=== PATIENT | female | born 2000 | race African-American/Black ===

== ENCOUNTER 2020-04-24 16:00 | Outpatient (REF) | payer OTHER, SELFPAY ==
[2020-04-26 10:01] LABS: CT PCR NOT DETECTED (Not Detect.); NG PCR NOT DETECTED (Not Detect.)
[2020-04-26 12:32] LABS: BV Int Neg Control Negative (Negative); BV Int Pos Control Positive (Positive)
== END 2020-04-24 16:01 | disposition home or self-care (01) ==
LOC: HO.LNP 16:00
PROVIDERS: Visit Provider Nurse Practitioner Family
DX: R30.0 Dysuria (principal)
CPT/HCPCS: 87480; 87491; 87510; 87591; 87660

== ENCOUNTER 2020-06-17 10:26 | Emergency (ER) | payer OTHER, SELFPAY ==
[2020-06-17 10:53] VITALS: BP 121/92; PULSE 87; RESP 18; TEMP 37.1; O2SAT 99; BMI 38.9
--- NOTE | 2020-06-17 11:38 | US_ITS ---
EXAMINATION: US ABDOMEN LIMITED CLINICAL INFORMATION: Right lower quadrant pain. Rule out biliary disease. COMPARISON: Ultrasound abdomen limited 02/09/2020 TECHNIQUE: Real-time imaging of the right upper quadrant abdominal viscera. FINDINGS: PANCREAS: The body and head of pancreas is homogeneous in echotexture. The tail is obscured by overlying gas. LIVER: Slightly irregular shaped hyperechoic focal area in the right lower lobe measuring 2.0 x 2.0 x 1.7 cm. It is new since the last exam 02/09/2020. The liver is normal in size. The liver contour is normal. Parenchymal echogenicity is normal. No focal hepatic lesion. There is no intrahepatic biliary duct dilatation seen. GALLBLADDER: There are multiple echogenic gallstones without wall thickening. No pericholecystic fluid collection seen. No pericholecystic fluid collection seen. COMMON BILE DUCT: Normal in caliber measuring 0.3 cm in diameter. RIGHT KIDNEY: Normal. No hydronephrosis. No renal calculi or focal parenchymal lesions. The kidney measures 12.2 cm in maximum dimension. FREE FLUID: None. US/US abdomen limited IMPRESSION: New hyperechoic area in the right hepatic lobe question hemangioma. It is not seen on today's CT abdomen exam or previous ultrasound study 02/09/2020. Cholelithiasis without wall thickening. It is unchanged to previous study 02/09/2020. It is not visualized on today's CT abdomen exam.
--- NOTE | 2020-06-17 11:40 | CT_ITS ---
EXAMINATION: CT ABDOMEN AND PELVIS WITH CONTRAST CLINICAL INFORMATION: Right-sided pain. Right upper quadrant and right lower quadrant pain. COMPARISON: Ultrasound abdomen limited 02/09/2020 TECHNIQUE: Multidetector volumetric images were obtained from the superior aspect of the liver through the pubic symphysis following administration 85 mL of Omnipaque 350 intravenous contrast. Sagittal and coronal reformatted images were obtained on the technologist's workstation. Oral contrast: No This CT examination was performed using dose optimization techniques as appropriate, variously including the following: *Automated exposure control *Adjustment of mA and/or kV according to patient size (this includes techniques or standardized protocols for targeted exams where dose is matched to indication/reason for exam; i.e. extremities or head) *Use of iterative reconstruction technique DLP: 703 mGy-cm FINDINGS: LUNG BASES: The visualized lung bases are unremarkable. LIVER, GALLBLADDER, AND BILIARY TREE: The liver is normal in size, shape, and attenuation. No focal hepatic lesion or biliary ductal dilatation is present. The gallbladder shows no dilatation or wall thickening. No pericholecystic inflammatory changes. The gallstone noted on recent ultrasound is not demonstrated on CT. The common duct is unremarkable. No ductal dilatation or visible choledocholithiasis. PANCREAS: Unremarkable. SPLEEN: Unremarkable. ADRENAL GLANDS: Unremarkable. KIDNEYS AND URETERS: The kidneys are normal in size, shape, and attenuation. No hydronephrosis, hydroureter, or calculi seen. No perinephric stranding. BLADDER: Unremarkable. GASTROINTESTINAL TRACT: There is no bowel obstruction or inflammatory changes in the bowel or mesentery. The appendix is normal. There is a borderline sliding hiatal hernia. No ascites or fluid collection. ABDOMINAL WALL: No significant hernia is appreciated. LYMPH NODES: Normal. VASCULAR: Unremarkable. PELVIC VISCERA: The uterus is retroflexed and retroverted. No visible adnexal mass. No pelvic ascites. OSSEOUS STRUCTURES: Unremarkable. CT/CT abdomen pelvis w con IMPRESSION: 1. No biliary ductal dilatation or pericholecystic inflammatory changes. 2. Normal appendix. No bowel obstruction or inflammatory changes. 3. No hydronephrosis, urinary tract calculi, or perinephric stranding.
--- NOTE | 2020-06-17 11:42 | ED.ABDPAIN ---
HPI - Abdominal Pain General Chief Complaint: Abdominal Pain Stated Complaint: back and stomach pain Time Seen by Provider: 06/17/20 11:23 History of Present Illness HPI narrative: 20-year-old female who presents to the emergency department for evaluation of abdominal pain and persistent nausea. The patient was seen at our primary care office today refer to emergency department for further evaluation. The patient states that she has been having intermittent abdominal pain and nausea since January of 2020. She was seen here in the emergency department and diagnosed with gastritis and gallstones. She states that she followed up with the surgeon who convinced her to not have her gallbladder removed. She states that she has been having daily abdominal pain and nausea for 1 month. She states that the symptoms have gotten worse over the last week. She points to her mid epigastric area when asked to localize her pain. She states the pain is constant but waxes and wanes in intensity. The pain is exacerbated by eating. She states the pain is severe and is 10 out 10. She has constant nausea but no vomiting. She states she occasionally takes Tums with some relief of her discomfort. She denied fever, chills, chest pain, shortness of breaths, frequency, urgency or dysuria. She states that her bowel movements vary from being constipated having diarrhea. She has not noticed any blood in her bowel movements. The patient's past surgical history is consistent with a in 2019 otherwise she has had no other abdominal surgeries. Related Data Previous Rx's Medication Instructions Recorded fluconazole 150 mg tablet 150 mg PO Q3D #2 tab 04/24/20 ondansetron 4 mg PO Q8H PRN 5 Days #20 tab 06/17/20 Allergies Allergy/AdvReac Type Severity Reaction Status Date / Time grapefruit [GRAPEFRUIT] Allergy Severe ANAPHYLAXIS Verified 06/17/20 10:58 Sulfa (Sulfonamide Allergy Severe ANAPHYLAXIS, Verified 06/17/20 10:58 Antibiotics) sweling of [SULFA (SULFONAMIDE the face ANTIBIOTICS)] and throat, throat & facial swelling nitrofurantoin Allergy Unknown rash on Verified 06/17/20 10:58 face, facial rash SEASONAL ALLERGIES Allergy Intermediate UNKNOWN Uncoded 06/17/20 09:21 Avacados Allergy Unknown rash Uncoded 06/17/20 09:21 avocados Allergy Unknown rash Uncoded 06/17/20 09:21 cranberry juice Allergy Unknown rash Uncoded 06/17/20 09:21 grapefruit Allergy Unknown rash Uncoded 06/17/20 09:21 Review of Systems Review of Systems Yes all other systems are reviewed and are negative Constitutional: Reports as per HPI Eyes: Reports as per HPI Reports as per HPI Cardiovascular: Reports as per HPI Respiratory: Reports as per HPI Gastrointestinal: Reports as per HPI Genitourinary: Reports as per HPI Musculoskeletal: Reports as per HPI Skin/Breast: Reports as per HPI Reports as per HPI and Reports Abnormal speech present Psychiatric: Reports as per HPI Allergic/Immunologic: Reports as per HPI Physical Exam Vital Signs: Vital Signs: Last Vital Signs Temp 98.7 F 06/17/20 14:00 Pulse 98 06/17/20 14:00 Resp 16 06/17/20 14:00 BP 101/61 06/17/20 14:00 Pulse Ox 99 06/17/20 10:53 Body Mass Index 38.9 Const: General: cooperative, no acute distress, alert and awake Orientation/consciousness: oriented to person and oriented to place Limitations: no limitations HENMT: Head: Yes normal to inspection, Yes normocephalic and Yes atraumatic Ears: external ears normal Eyes: General: appearance normal, both eyes and all related structures Periorbital: periorbital findings normal Eyelids: Yes eyelids normal Conjunctivae: conjunctivae normal Sclerae: sclerae normal Corneas: corneas normal Pupils: Equal, round and reactive pupils present Direct Ophthalmoscopy: normal light reflex Neck: Neck: Yes normal visual inspection and Yes supple Lymphatic: no lymphadenopathy noted Chest: Chest palpation & inspection: normal inspection of the chest and normal palpation of entire chest wall Resp: Effort & Inspection: normal respiratory effort, abnormal respiratory pattern, no audible wheezes and no respiratory distress Auscultation: clear to auscultation bilaterally, no crackles, no rales, no rhonchi and no wheezes Cardio: Rate: regular rate Rhythm: regular rhythm Heart sounds: S1 normal heart sound present, S2 normal heart sound present and Murmur heart sound present GI: Inspection: No distended Palpation (GI): Soft to palpation, Tenderness to palpation present (GI) in the RLQ (Moderate to severe) and in the RUQ (Moderate), no guarding and No hepatosplenomegaly present Auscultation: normal bowel sounds : General: Yes no CVA tenderness Back/Spine/Pelvis: Back: no CVA tenderness Skin: General skin exam: no rashes or lesions noted Lesions: no lesions Rashes: no rashes Wounds: no wounds Neuro: General: oriented to person and oriented to place Cranial nerves: Yes CN's II-XII intact bilaterally and Yes Equal, round and reactive pupils present Cognition (Neuro): normal cognition Speech: Abnormal speech present Motor exam (neuro): 5/5 motor strength present throughout Extrem: General: Yes normal to inspection, Yes full ROM, Yes no pedal edema and Yes no calf tenderness Psych: Appearance: grossly normal Mental Status: mental status grossly normal Speech and movement: Clear speech present Affect: normal affect Thought process: Normal thought process present Course Course Course Narrative: MDM: 20-year-old female who presents emergency department for evaluation of abdominal pain since January 2020 which has gotten worse over the past month and significantly worse over the past week. The patient does have diagnosed gallstones from a previous ER visit and follow-up with surgeon who recommended against cholecystectomy time. The patient is experiencing severe right upper quadrant pain which radiates to her back associated with nausea. Physical examination revealed both right upper and right lower quadrant tenderness. Differential includes but is not limited to cholecystitis, appendicitis, gastritis. I ordered an abdominal pain workup to include CBC, CMP, lipase, right upper quadrant ultrasound, CT scan of the abdomen and pelvis with IV contrast. The patient will be treated with Toradol 30 mg IV and Zofran 4 mg IV. She was also ordered to get normal saline x1 L. 1428: The patient's laboratory evaluation was normal with normal LFTs and elevated lipase. The patient's urinalysis and urine tests were negative as well. CT scan of the abdomen and pelvis with IV contrast revealed a normal gallbladder. Ultrasound of the patient's right upper quadrant did reveal small gallstones and possible hemangioma but otherwise no other significant abnormalities to explain the patient's pain. I did discuss these findings with the patient. I did tell her it is possible that she could have a non contracted gallbladder however I suspect that her pain is more likely related to gastritis and esophagitis. The patient will be referred to the on-call automatic brine mixer operator for follow-up. She was started on Prilosec 20 mg once a day for 1 month. She was also started on Zofran 4 mg ODT q.8 hours as needed for nausea and vomiting. She was advised to take Tylenol for pain and to avoid ibuprofen. She was given printed instructions and is reviewed with her prior to discharge. MDM - Abdominal Pain Lab Data Result diagrams: 06/17/20 12:06 06/17/20 12:06 Labs: Lab Results 06/17/20 06/17/20 06/17/20 Range/Units 12:06 12:06 12:06 WBC 10.0 (4.8-10.8) X10*3/uL RBC 4.53 (4.20-5.50) X10*6/uL Hgb 12.7 (12.0-16.0) g/dl Hct 39.6 (37-47) % MCV 87.4 (80-98) fL MCH 28.0 (27.0-33.0) pg MCHC 32.1 (31.0-35.0) g/dl RDW 13.6 (11.0-16.0) % Plt Count 321 (160-400) X10*3/uL MPV 9.9 (9.4-12.3) fL Immature Gran % (Auto) 0.3 (0.0-0.4) % Neut % (Auto) 75.9 H (45-73) % Lymph % (Auto) 18.2 L (20-40) % [place] % (Auto) 5.1 (2-11) % Eos % (Auto) 0.2 (0-4) % Baso % (Auto) 0.3 (0-2) % Lymph # (Auto) 1.8 (1.2-4.9) X10*3/uL [place] # (Auto) 0.5 (0.1-1.2) X10*3/uL Eos # (Auto) 0.0 (0.0-0.4) X10*3/uL Baso # (Auto) 0.0 (0.0-0.2) X10*3/uL Abs Immat Gran (auto) 0.03 (0.00-0.03) X10*3/uL Absolute Neuts (auto) 7.6 (2.0-8.3) X10*3/uL Absolute Nucleated RBC 0.000 (0.0-0.012) X10*3/uL Nucleated RBC % (auto) 0.0 (0.0-0.2) /100WBC Sodium 137 (135-145) mmol/L Potassium 4.3 (3.3-5.1) mmol/l Chloride 102 (96-108) mmol/L Carbon Dioxide 26 (22-29) mmol/L Anion Gap 13 (12-20) BUN 13 (9-16) mg/dL Creatinine 0.75 (0.5-1.4) mg/dL Estim Creat Clear Calc 123.7 Estimated GFR > 60 Random Glucose 80 (60-115) mg/dL Calcium 9.6 (8.4-10.2) mg/dL Total Bilirubin 0.6 (0.0-1.0) mg/dL Direct Bilirubin 0.3 (0.0-0.5) mg/dL AST 19 (5-31) U/L ALT 20 (0-31) U/L Alkaline Phosphatase 68 (39-117) U/L Total Protein 7.4 (6.5-8.0) g/dL Albumin 4.5 (3.5-5.0) g/dL Lipase 19 (8-78) U/L Urine Color YELLOW Urine Appearance CLOUDY Urine pH 6.0 (5.0-8.0) Ur Specific [place] >= 1.030 H (1.005-1.025) Urine Protein TRACE (NEG-TRACE) MG/DL Urine Glucose (UA) NEG (NEG) MG/DL Urine Ketones >=80 (NEG) MG/DL Urine Blood NEG (NEG) Urine Nitrite NEG (NEG) Ur Leukocyte Esterase NEG (NEG) Urine Test NEGATIVE (NEGATIVE) Discharge Plan Discharge Clinical Impression: Nausea Abdominal pain Qualifiers: Abdominal location: epigastric Qualified Code(s): R10.13 - Epigastric pain Patient Disposition: Home, Self-Care Instructions: Gastritis (ED), Esophagitis (ED) Additional Instructions: Your blood work today was normal which is reassuring. The CT scan of your abdomen and pelvis with IV contrast revealed a normal gallbladder and no other abnormalities to explain her pain. The ultrasound of the gallbladder did reveal gallstones and a small hematoma. There was no inflammation of the gallbladder noted. It is possible that your gallbladder may not be theodora this could cause your pain however I believe that your pain is more likely caused by inflammation of her stomach (gastritis) or inflammation of your food tube (esophagitis). Take Prilosec (omeprazole) 20 mg tablets once a day for 1 month. Take Zofran (ondansetron) 4 mg oral dissolvable tablets, 1 tablet dissolved in mouth every 8 hours as needed for nausea and vomiting. Please call the automatic brine mixer operator on-call to make a follow-up appointment within 1-2 weeks for re-evaluation and further workup of your abdominal pain. Please return to the emergency department if her symptoms get worse if you develop any new symptoms that are concerning to you. Prescriptions: New ondansetron 4 mg tablet,disintegrating 4 mg PO Q8H PRN (Reason: nausea and vomiting) 5 Days Qty: 20 RF: 0 No Action fluconazole [Diflucan] 150 mg tablet 150 mg PO Q3D Qty: 2 RF: 0 Referrals: Martha King MD [Physician] - 2 weeks [facility] Past Medical History [facility] Narrative: The patient denies tobacco use. She states she drinks alcohol socially. Denies drug use. Medical History Asthma Gallstones Gastritis Social History Social History Smoking Status: Never smoker Use of substances other than those prescribed or required for medical reasons: No Advance Directives: No Advance Directives Information Provided: Yes
[2020-06-17] MEDS: 0.9 % Sodium Chloride 1,000 ML 999 ML IVCONT (12:11)
[2020-06-17 12:12] LABS: Basophils Percent Auto 0.3 % (0-2); Eosinophils Percent Auto 0.2 % (0-4); Hematocrit 39.6 % (37-47); Hemoglobin 12.7 g/dl (12.0-16.0); Imm Gran Abs Auto 0.03 X10*3/uL (0.00-0.03); Imm Gran Pct Auto 0.3 % (0.0-0.4); Lymphocytes Absolute Auto 1.8 X10*3/uL (1.2-4.9); Lymphocytes Percent Auto 18.2 % (20-40); MANUAL DIFF FLAG NO; Mean Corpuscular HGB Conc 32.1 g/dl (31.0-35.0); Mean Corpuscular Volume 87.4 fL (80-98); Mean Platelet Volume 9.9 fL (9.4-12.3); Monocytes Absolute Auto 0.5 X10*3/uL (0.1-1.2); Monocytes Percent Auto 5.1 % (2-11); Neutrophils Absolute Auto 7.6 X10*3/uL (2.0-8.3); Neutrophils Percent Auto 75.9 % (45-73); Platelet Count 321 X10*3/uL (160-400); Red Blood Count 4.53 X10*6/uL (4.20-5.50); Red Cell Distribution Width 13.6 % (11.0-16.0)
[2020-06-17] MEDS: Ketorolac Tromethamine 30 MG/ML VIAL IVPUSH (12:12)
[2020-06-17] MEDS: ondansetron HCL 4 MG/2 ML VIAL IVPUSH (12:12)
[2020-06-17 12:14] LABS: Glucose Urine UA NEG (NEG); Leukocyte Esterase Urine NEG (NEG); Nitrite Urine NEG (NEG); Specific Gravity - Urine >= 1.030 (1.005-1.025); Urine Blood NEG (NEG); Urine Ketones >=80 MG/DL (NEG); Urine Protein TRACE MG/DL (NEG-TRACE)
[2020-06-17 12:15] LABS: Appearance Urine CLOUDY; Color Urine YELLOW
[2020-06-17 12:16] LABS: UPreg QC Valid YES; Urine Pregnancy NEGATIVE (NEGATIVE)
[2020-06-17 12:47] LABS: Alanine Aminotransferase 20 U/L (0-31); Albumin Level 4.5 g/dL (3.5-5.0); Alkaline Phosphatase 68 U/L (39-117); Anion Gap 13 (12-20); Aspartate Amino Transferase 19 U/L (5-31); Bilirubin Direct 0.3 mg/dL (0.0-0.5); Bilirubin Total 0.6 mg/dL (0.0-1.0); Blood Urea Nitrogen 13 mg/dL (9-16); Calcium 9.6 mg/dL (8.4-10.2); Carbon Dioxide 26 mmol/L (22-29); Chloride 102 mmol/L (96-108); Creatinine Clr Calc Pharmacy 123.7; Estimated Glomerular Filt Rate > 60; Glucose Random 80 mg/dL (60-115); Lipase 19 U/L (8-78); Potassium 4.3 mmol/l (3.3-5.1); Sodium 137 mmol/L (135-145); Total Protein 7.4 g/dL (6.5-8.0)
[2020-06-17] MEDS: iohexoL 350 MG/ML 100 ML INFUS..BTL 85 ML IV (13:34)
[2020-06-17 14:00] VITALS: BP 101/61; PULSE 98; RESP 16; TEMP 37.1
== END 2020-06-17 14:52 | disposition home or self-care (01) ==
PROVIDERS: Emergency Provider Emergency Medicine Emergency Medical Services; PCP Internal Medicine
DX: R10.13 Epigastric pain (principal); R11.0 Nausea; Z79.899 Other long term (current) drug therapy
CPT/HCPCS: 36415; 74177; 76705; 80048; 80076; 81003; 81025; 83690; 85025; 96361; 96374; 96375; 99284; J1885; J2405; Q9967

== ENCOUNTER 2020-06-27 08:35 | Emergency (ER) | payer OTHER, SELFPAY ==
[2020-06-27 09:02] VITALS: BP 111/67; PULSE 81; RESP 20; TEMP 36.8; O2SAT 99; BMI 37.8
--- NOTE | 2020-06-27 09:20 | US_ITS ---
EXAMINATION: US ABDOMEN LIMITED CLINICAL INFORMATION: Right upper quadrant pain. COMPARISON: Previous ultrasound of the abdomen and CT of the abdomen and pelvis 06/17/2020 TECHNIQUE: Real-time imaging of the right upper quadrant abdominal viscera. FINDINGS: PANCREAS: Normal. LIVER: Normal. The liver is normal in size. The liver contour is normal. Parenchymal echogenicity is normal. No focal hepatic lesion. There is no intrahepatic biliary duct dilatation seen. GALLBLADDER: There is a gallstone in the neck of the gallbladder. The gallbladder is upper normal in size measuring 9.5 x 3.5 x 4 cm. The gallbladder wall does not appear thickened. There is no pericholecystic fluid. COMMON BILE DUCT: Normal in caliber measuring 0.4 cm in diameter. RIGHT KIDNEY: Normal. No hydronephrosis. No renal calculi or focal parenchymal lesions. The kidney measures 11.4 cm in maximum dimension. FREE FLUID: None. US/US abdomen limited IMPRESSION: Gallstone in the neck of the gallbladder. The gallbladder is upper normal in size. No gallbladder wall thickening or pericholecystic fluid seen to suggest acute cholecystitis.
--- NOTE | 2020-06-27 09:22 | ED.ABDPAIN ---
HPI - Abdominal Pain General Chief Complaint: Abdominal Pain <YADY Anderson Last Filed: 06/27/20 12:28> Stated Complaint: gallbladder pain <YADY Anderson Last Filed: 06/27/20 12:28> Time Seen by Provider: 06/27/20 09:12 <YADY Anderson Last Filed: 06/27/20 12:28> Source: patient <YADY Anderson Last Filed: 06/27/20 12:28> Mode of arrival: ambulatory <YADY Anderson Last Filed: 06/27/20 12:28> History of Present Illness HPI narrative: 20-year-old female with a past medical history of gallstones, presenting to ED complaining of worsening intermittent RUQ abdominal pain radiating to back, nausea, and vomiting x3 months, worsening over the past week. Admits was seen and treated in the ED 1 week ago with similar symptoms, ultrasound showed gallstones, without acute cholecystitis, was unable to follow-up with irrigationist designer. Admits recently saw surgeon who convinced her not to have surgery. Pain worse after eating. Denies fever, diarrhea, constipation, dysuria/hematuria <YADY Anderson Last Filed: 06/27/20 12:28> MD elicited complaint: abdominal pain <YADY Anderson Last Filed: 06/27/20 12:28> Related Data Home Medications: Previous Rx's Medication Instructions Recorded ondansetron 4 mg PO Q8H PRN 5 Days #20 tab 06/17/20 Lidocaine Viscous 1 appl MUCOUS MEMBRANE BID PRN 06/27/20 #100 ml alum-mag hydroxide-simeth [Maalox 5 ml PO 5XD PRN #3000 ml 06/27/20 Advanced] oxycodone 5 mg PO Q6H PRN #14 tab 06/30/20 <YADY Anderson Last Filed: 06/27/20 12:28> Allergies/Adverse Reactions: Allergies Allergy/AdvReac Type Severity Reaction Status Date / Time grapefruit [GRAPEFRUIT] Allergy Severe ANAPHYLAXIS Verified 06/28/20 03:17 Sulfa (Sulfonamide Allergy Severe ANAPHYLAXIS, Verified 06/28/20 03:17 Antibiotics) sweling of [SULFA (SULFONAMIDE the face ANTIBIOTICS)] and throat, throat & facial swelling nitrofurantoin Allergy Unknown rash on Verified 06/28/20 03:17 face, facial rash SEASONAL ALLERGIES Allergy Intermediate UNKNOWN Uncoded 06/17/20 09:21 Avacados Allergy Unknown rash Uncoded 06/17/20 09:21 avocados Allergy Unknown rash Uncoded 06/17/20 09:21 cranberry juice Allergy Unknown rash Uncoded 06/17/20 09:21 grapefruit Allergy Unknown rash Uncoded 06/17/20 09:21 <YADY Anderson - Last Filed: 06/27/20 12:28> Review of Systems Review of Systems Constitutional: No Weight loss, No Fever, + Chills Gastrointestinal: + Nausea, + Vomiting, No Diarrhea, No Constipation, + Abdominal pain Genitourinary: No irregular bleeding, No Dysuria, No Urinary Frequency, No Hematuria Musculoskeletal: No joint pain, No Myalgias, No Joint Swelling Skin: No Skin Lesions, No rash <YADY Anderson - Last Filed: 06/27/20 12:28> Yes all other systems are reviewed and are negative <YADY Anderson - Last Filed: 06/27/20 12:28> Physical Exam Vital Signs: Vital Signs: Last Vital Signs Temp 98.4 F 06/27/20 11:36 Pulse 73 06/27/20 11:36 Resp 16 06/27/20 11:36 BP 113/65 06/27/20 11:36 Pulse Ox 100 06/27/20 11:36 Body Mass Index 37.8 <YADY Anderson - Last Filed: 06/27/20 12:28> Vital Signs: Last Vital Signs Temp 98.4 F 06/27/20 11:36 Pulse 73 06/27/20 11:36 Resp 16 06/27/20 11:36 BP 113/65 06/27/20 11:36 Pulse Ox 100 06/27/20 11:36 Body Mass Index 37.8 <Luan Moore MD - Last Filed: 07/18/20 08:54> Const: General: cooperative and healthy appearing <YADY Anderson - Last Filed: 06/27/20 12:28> Orientation/consciousness: patient oriented x3 <YADY Anderson - Last Filed: 06/27/20 12:28> Limitations: no limitations <Juana Yacney FL - Last Filed: 06/27/20 12:28> HENMT: Head: Yes normal to inspection <Juana Yancey PA - Last Filed: 06/27/20 12:28> Ears: hearing grossly normal bilaterally <Juana Yancey PA - Last Filed: 06/27/20 12:28> General nose exam: Normal external nose present <Juana Yancey FL - Last Filed: 06/27/20 12:28> Face and sinus: Yes normal facial exam <Juana Yancey FL - Last Filed: 06/27/20 12:28> Eyes: General: appearance normal, both eyes and all related structures <Juana Yancey FL - Last Filed: 06/27/20 12:28> EOM: EOMs intact bilaterally <Juana Yancey FL - Last Filed: 06/27/20 12:28> Neck: Neck: Yes normal visual inspection <Juana Yancey FL - Last Filed: 06/27/20 12:28> Resp: Effort & Inspection: normal respiratory effort <Juana Yancey FL - Last Filed: 06/27/20 12:28> Cardio: Rate: regular rate <Juana Yancey FL - Last Filed: 06/27/20 12:28> GI: Inspection: Yes normal to inspection <Juana Yancey FL - Last Filed: 06/27/20 12:28> Palpation (GI): Soft to palpation, Tenderness to palpation present (GI) in the RUQ, no guarding and not rigid <Juana Yancey FL - Last Filed: 06/27/20 12:28> : General: Yes CVA tenderness on the right <Juana Yancey PA - Last Filed: 06/27/20 12:28> Skin: Rashes: no rashes <Juana Yancey PA - Last Filed: 06/27/20 12:28> Wounds: no wounds <Juana Yancey PA - Last Filed: 06/27/20 12:28> Neuro: General: patient oriented x3 <Juana Yancey PA - Last Filed: 06/27/20 12:28> Gait exam (Neuro): Normal gait present <Juana [facility], [facility] - Last Filed: 06/27/20 12:28> Extrem: General: Yes normal to inspection <YADY Anderson - Last Filed: 06/27/20 12:28> Course Course Course Narrative: -labs and UA unremarkable, ultrasound with gallstone in the neck of the gallbladder, gallbladder is upper normal in size, no wall thickening or pericholecystic fluid seen to suggest acute cholecystitis> patient reports symptomatic improvement after medications given in the ED, worrisome signs and symptoms and strict return precautions discussed with patient. She verbalized understanding feel safe for discharge home to follow-up with surgery <YADY Anderson - Last Filed: 06/27/20 12:28> I have reviewed the chart <Luan Moore MD - Last Filed: 07/18/20 08:54> MDM - Abdominal Pain MDM Narrative Medical decision making narrative: 20-year-old female with a past medical history of gallstones, presenting to ED complaining of worsening intermittent RUQ abdominal pain radiating to back, nausea, and vomiting x3 months. On exam VSS, NAD/well-appearing, abdomen soft with RUQ and right flank TTP. Labs/imaging reviewed from prior visit on 06/17, ultrasound showed gallstones, CT was unremarkable. Concern for cholelithiasis vs cholecystitis vs pancreatitis vs ? Renal stone although lower on differential vs gastritis/GERD. Low concern for appendicitis/diverticulitis Plan: Labs, UA, repeat ultrasound, IVF, pain medication, reassess <YADY Anderson - Last Filed: 06/27/20 12:28> Lab Data Result diagrams: : 06/27/20 09:32 06/27/20 09:33 <YADY Anderson - Last Filed: 06/27/20 12:28> Labs: Lab Results 06/27/20 06/27/20 06/27/20 Range/Units 09:32 09:33 09:33 WBC 7.1 (4.8-10.8) X10*3/uL RBC 4.39 (4.20-5.50) X10*6/uL Hgb 12.3 (12.0-16.0) g/dl Hct 39.4 (37-47) % MCV 89.7 (80-98) fL MCH 28.0 (27.0-33.0) pg MCHC 31.2 (31.0-35.0) g/dl RDW 13.9 (11.0-16.0) % Plt Count 322 (160-400) X10*3/uL MPV 10.6 (9.4-12.3) fL Immature Gran % (Auto) 0.3 (0.0-0.4) % Neut % (Auto) 62.5 (45-73) % Lymph % (Auto) 26.9 (20-40) % [place] % (Auto) 7.9 (2-11) % Eos % (Auto) 2.1 (0-4) % Baso % (Auto) 0.3 (0-2) % Lymph # (Auto) 1.9 (1.2-4.9) X10*3/uL [place] # (Auto) 0.6 (0.1-1.2) X10*3/uL Eos # (Auto) 0.2 (0.0-0.4) X10*3/uL Baso # (Auto) 0.0 (0.0-0.2) X10*3/uL Abs Immat Gran (auto) 0.02 (0.00-0.03) X10*3/uL Absolute Neuts (auto) 4.4 (2.0-8.3) X10*3/uL Absolute Nucleated RBC 0.000 (0.0-0.012) X10*3/uL Nucleated RBC % (auto) 0.0 (0.0-0.2) /100WBC Hold Blue Top SEE NOTE Sodium 139 (135-145) mmol/L Potassium 4.2 (3.3-5.1) mmol/l Chloride 106 (96-108) mmol/L Carbon Dioxide 28 (22-29) mmol/L Anion Gap 9 L (12-20) BUN 9 (9-16) mg/dL Creatinine 0.68 (0.5-1.4) mg/dL Estim Creat Clear Calc 134.2 Estimated GFR > 60 Random Glucose 87 (60-115) mg/dL Calcium 9.0 D (8.4-10.2) mg/dL Total Bilirubin 0.4 (0.0-1.0) mg/dL Direct Bilirubin 0.2 (0.0-0.5) mg/dL AST 13 (5-31) U/L ALT 14 (0-31) U/L Alkaline Phosphatase 70 (39-117) U/L Total Protein 6.7 (6.5-8.0) g/dL Albumin 4.3 (3.5-5.0) g/dL Lipase 40 (8-78) U/L Urine Color Urine Appearance Urine pH (5.0-8.0) Ur Specific [place] (1.005-1.025) Urine Protein (NEG-TRACE) MG/DL Urine Glucose (UA) (NEG) MG/DL Urine Ketones (NEG) MG/DL Urine Blood (NEG) Urine Nitrite (NEG) Ur Leukocyte Esterase (NEG) Urine Test (NEGATIVE) 06/27/20 Range/Units 09:33 WBC (4.8-10.8) X10*3/uL RBC (4.20-5.50) X10*6/uL Hgb (12.0-16.0) g/dl Hct (37-47) % MCV (80-98) fL MCH (27.0-33.0) pg MCHC (31.0-35.0) g/dl RDW (11.0-16.0) % Plt Count (160-400) X10*3/uL MPV (9.4-12.3) fL Immature Gran % (Auto) (0.0-0.4) % Neut % (Auto) (45-73) % Lymph % (Auto) (20-40) % [place] % (Auto) (2-11) % Eos % (Auto) (0-4) % Baso % (Auto) (0-2) % Lymph # (Auto) (1.2-4.9) X10*3/uL [place] # (Auto) (0.1-1.2) X10*3/uL Eos # (Auto) (0.0-0.4) X10*3/uL Baso # (Auto) (0.0-0.2) X10*3/uL Abs Immat Gran (auto) (0.00-0.03) X10*3/uL Absolute Neuts (auto) (2.0-8.3) X10*3/uL Absolute Nucleated RBC (0.0-0.012) X10*3/uL Nucleated RBC % (auto) (0.0-0.2) /100WBC Hold Blue Top Sodium (135-145) mmol/L Potassium (3.3-5.1) mmol/l Chloride (96-108) mmol/L Carbon Dioxide (22-29) mmol/L Anion Gap (12-20) BUN (9-16) mg/dL Creatinine (0.5-1.4) mg/dL Estim Creat Clear Calc Estimated GFR Random Glucose (60-115) mg/dL Calcium (8.4-10.2) mg/dL Total Bilirubin (0.0-1.0) mg/dL Direct Bilirubin (0.0-0.5) mg/dL AST (5-31) U/L ALT (0-31) U/L Alkaline Phosphatase (39-117) U/L Total Protein (6.5-8.0) g/dL Albumin (3.5-5.0) g/dL Lipase (8-78) U/L Urine Color YELLOW Urine Appearance CLEAR Urine pH 8.0 (5.0-8.0) Ur Specific [place] 1.020 (1.005-1.025) Urine Protein NEG (NEG-TRACE) MG/DL Urine Glucose (UA) NEG (NEG) MG/DL Urine Ketones NEG (NEG) MG/DL Urine Blood NEG (NEG) Urine Nitrite NEG (NEG) Ur Leukocyte Esterase NEG (NEG) Urine Test NEGATIVE (NEGATIVE) <YADY Anderson - Last Filed: 06/27/20 12:28> Lab Results 06/27/20 06/27/20 06/27/20 Range/Units 09:32 09:33 09:33 WBC 7.1 (4.8-10.8) X10*3/uL RBC 4.39 (4.20-5.50) X10*6/uL Hgb 12.3 (12.0-16.0) g/dl Hct 39.4 (37-47) % MCV 89.7 (80-98) fL MCH 28.0 (27.0-33.0) pg MCHC 31.2 (31.0-35.0) g/dl RDW 13.9 (11.0-16.0) % Plt Count 322 (160-400) X10*3/uL MPV 10.6 (9.4-12.3) fL Immature Gran % (Auto) 0.3 (0.0-0.4) % Neut % (Auto) 62.5 (45-73) % Lymph % (Auto) 26.9 (20-40) % [place] % (Auto) 7.9 (2-11) % Eos % (Auto) 2.1 (0-4) % Baso % (Auto) 0.3 (0-2) % Lymph # (Auto) 1.9 (1.2-4.9) X10*3/uL [place] # (Auto) 0.6 (0.1-1.2) X10*3/uL Eos # (Auto) 0.2 (0.0-0.4) X10*3/uL Baso # (Auto) 0.0 (0.0-0.2) X10*3/uL Abs Immat Gran (auto) 0.02 (0.00-0.03) X10*3/uL Absolute Neuts (auto) 4.4 (2.0-8.3) X10*3/uL Absolute Nucleated RBC 0.000 (0.0-0.012) X10*3/uL Nucleated RBC % (auto) 0.0 (0.0-0.2) /100WBC Hold Blue Top SEE NOTE Sodium 139 (135-145) mmol/L Potassium 4.2 (3.3-5.1) mmol/l Chloride 106 (96-108) mmol/L Carbon Dioxide 28 (22-29) mmol/L Anion Gap 9 L (12-20) BUN 9 (9-16) mg/dL Creatinine 0.68 (0.5-1.4) mg/dL Estim Creat Clear Calc 134.2 Estimated GFR > 60 Random Glucose 87 (60-115) mg/dL Calcium 9.0 D (8.4-10.2) mg/dL Total Bilirubin 0.4 (0.0-1.0) mg/dL Direct Bilirubin 0.2 (0.0-0.5) mg/dL AST 13 (5-31) U/L ALT 14 (0-31) U/L Alkaline Phosphatase 70 (39-117) U/L Total Protein 6.7 (6.5-8.0) g/dL Albumin 4.3 (3.5-5.0) g/dL Lipase 40 (8-78) U/L Urine Color Urine Appearance Urine pH (5.0-8.0) Ur Specific [place] (1.005-1.025) Urine Protein (NEG-TRACE) MG/DL Urine Glucose (UA) (NEG) MG/DL Urine Ketones (NEG) MG/DL Urine Blood (NEG) Urine Nitrite (NEG) Ur Leukocyte Esterase (NEG) Urine Test (NEGATIVE) 06/27/20 Range/Units 09:33 WBC (4.8-10.8) X10*3/uL RBC (4.20-5.50) X10*6/uL Hgb (12.0-16.0) g/dl Hct (37-47) % MCV (80-98) fL MCH (27.0-33.0) pg MCHC (31.0-35.0) g/dl RDW (11.0-16.0) % Plt Count (160-400) X10*3/uL MPV (9.4-12.3) fL Immature Gran % (Auto) (0.0-0.4) % Neut % (Auto) (45-73) % Lymph % (Auto) (20-40) % [place] % (Auto) (2-11) % Eos % (Auto) (0-4) % Baso % (Auto) (0-2) % Lymph # (Auto) (1.2-4.9) X10*3/uL [place] # (Auto) (0.1-1.2) X10*3/uL Eos # (Auto) (0.0-0.4) X10*3/uL Baso # (Auto) (0.0-0.2) X10*3/uL Abs Immat Gran (auto) (0.00-0.03) X10*3/uL Absolute Neuts (auto) (2.0-8.3) X10*3/uL Absolute Nucleated RBC (0.0-0.012) X10*3/uL Nucleated RBC % (auto) (0.0-0.2) /100WBC Hold Blue Top Sodium (135-145) mmol/L Potassium (3.3-5.1) mmol/l Chloride (96-108) mmol/L Carbon Dioxide (22-29) mmol/L Anion Gap (12-20) BUN (9-16) mg/dL Creatinine (0.5-1.4) mg/dL Estim Creat Clear Calc Estimated GFR Random Glucose (60-115) mg/dL Calcium (8.4-10.2) mg/dL Total Bilirubin (0.0-1.0) mg/dL Direct Bilirubin (0.0-0.5) mg/dL AST (5-31) U/L ALT (0-31) U/L Alkaline Phosphatase (39-117) U/L Total Protein (6.5-8.0) g/dL Albumin (3.5-5.0) g/dL Lipase (8-78) U/L Urine Color YELLOW Urine Appearance CLEAR Urine pH 8.0 (5.0-8.0) Ur Specific [place] 1.020 (1.005-1.025) Urine Protein NEG (NEG-TRACE) MG/DL Urine Glucose (UA) NEG (NEG) MG/DL Urine Ketones NEG (NEG) MG/DL Urine Blood NEG (NEG) Urine Nitrite NEG (NEG) Ur Leukocyte Esterase NEG (NEG) Urine Test NEGATIVE (NEGATIVE) <Luan Moore MD - Last Filed: 07/18/20 08:54> Discharge Plan Discharge Clinical Impression: Cholelithiasis <YADY Anderson - Last Filed: 06/27/20 12:28> Patient Disposition: Home, Self-Care <YADY Anderson - Last Filed: 06/27/20 12:28> Instructions: Gallstones (ED) <YADY Anderson - Last Filed: 06/27/20 12:28> Additional Instructions: Your blood work was reassuring today in the ED Your ultrasound showed gallstones in her gallbladder, however no signs of acute infection You need to follow-up with a general surgeon, possibly take her gallbladder removed Maalox and lidocaine will help with her pain If pain persists or worsens, you are unable to eat or drink, developed fever/chills, or persistent nausea/vomiting return to the ED <YADY Anderson - Last Filed: 06/27/20 12:28> Prescriptions: New alum-mag hydroxide-simeth [Maalox Advanced] 200-200-20 mg/5 mL suspension 5 ml PO 5XD PRN (Reason: indigestion) Qty: 3000 RF: 0 Lidocaine Viscous 2 % solution 1 appl mucous membrane BID PRN (Reason: pain) Qty: 100 RF: 0 No Action ondansetron 4 mg tablet,disintegrating 4 mg PO Q8H PRN (Reason: nausea and vomiting) 5 Days Qty: 20 RF: 0 oxycodone 5 mg tablet 5 mg PO Q6H PRN (Reason: pain) Qty: 14 RF: 0 <YADY Anderson - Last Filed: 06/27/20 12:28> Referrals: Mariel Hercules MD [Physician] - 1 week <YADY Anderson - Last Filed: 06/27/20 12:28> Interventions: ED Discharge Assessment Last Done: 06/27/20 12:46 <YADY Anderson - Last Filed: 06/27/20 12:28> Discharge Date/Time: 06/27/20 12:47 <YADY Anderson - Last Filed: 06/27/20 12:28> [facility] Past Medical History Attestation statement: The following information was validated with the patient. <YADY Anderson - Last Filed: 06/27/20 12:28> Medical History: Medical History Asthma Gallstones Gastritis <YADY Anderson - Last Filed: 06/27/20 12:28> Social History Social History: Social History Household Members: Children Housing: Apartment Smoking Status: Never smoker service: No Current occupational status: employed <YADY Anderson - Last Filed: 06/27/20 12:28>
[2020-06-27 09:42] LABS: MANUAL DIFF FLAG NO
[2020-06-27] MEDS: Lidocaine HCl Viscous 2 % 15 ML SOLUTION MUCOUS MEM (09:43)
[2020-06-27] MEDS: ondansetron HCL 4 MG/2 ML VIAL IVPUSH (09:43)
[2020-06-27] MEDS: 0.9 % Sodium Chloride 1,000 ML 999 ML IVCONT (09:43)
[2020-06-27] MEDS: Famotidine/PF 20 MG/2 ML VIAL IVPUSH (09:43)
[2020-06-27] MEDS: Magnesium Hydrox/Alum Hydrox 30 ML ORAL.SUSP PO (09:43)
[2020-06-27 09:45] LABS: Glucose Urine UA NEG (NEG); Leukocyte Esterase Urine NEG (NEG); Nitrite Urine NEG (NEG); Urine Blood NEG (NEG); Urine Ketones NEG (NEG); Urine Protein NEG (NEG-TRACE)
[2020-06-27 09:46] LABS: Appearance Urine CLEAR; Color Urine YELLOW
[2020-06-27 09:47] LABS: UPreg QC Valid YES; Urine Pregnancy NEGATIVE (NEGATIVE)
[2020-06-27 09:50] LABS: Basophils Percent Auto 0.3 % (0-2); Eosinophils Absolute Auto 0.2 X10*3/uL (0.0-0.4); Eosinophils Percent Auto 2.1 % (0-4); Hematocrit 39.4 % (37-47); Hemoglobin 12.3 g/dl (12.0-16.0); Imm Gran Abs Auto 0.02 X10*3/uL (0.00-0.03); Imm Gran Pct Auto 0.3 % (0.0-0.4); Lymphocytes Absolute Auto 1.9 X10*3/uL (1.2-4.9); Lymphocytes Percent Auto 26.9 % (20-40); Mean Corpuscular HGB Conc 31.2 g/dl (31.0-35.0); Mean Corpuscular Volume 89.7 fL (80-98); Mean Platelet Volume 10.6 fL (9.4-12.3); Monocytes Absolute Auto 0.6 X10*3/uL (0.1-1.2); Monocytes Percent Auto 7.9 % (2-11); Neutrophils Absolute Auto 4.4 X10*3/uL (2.0-8.3); Neutrophils Percent Auto 62.5 % (45-73); Platelet Count 322 X10*3/uL (160-400); Red Blood Count 4.39 X10*6/uL (4.20-5.50); Red Cell Distribution Width 13.9 % (11.0-16.0); White Blood Count 7.1 X10*3/uL (4.8-10.8)
[2020-06-27 10:10] LABS: Alanine Aminotransferase 14 U/L (0-31); Albumin Level 4.3 g/dL (3.5-5.0); Alkaline Phosphatase 70 U/L (39-117); Anion Gap 9 (12-20); Aspartate Amino Transferase 13 U/L (5-31); Bilirubin Direct 0.2 mg/dL (0.0-0.5); Bilirubin Total 0.4 mg/dL (0.0-1.0); Blood Urea Nitrogen 9 mg/dL (9-16); Carbon Dioxide 28 mmol/L (22-29); Chloride 106 mmol/L (96-108); Creatinine Clr Calc Pharmacy 134.2; Estimated Glomerular Filt Rate > 60; Glucose Random 87 mg/dL (60-115); Lipase 40 U/L (8-78); Potassium 4.2 mmol/l (3.3-5.1); Sodium 139 mmol/L (135-145); Total Protein 6.7 g/dL (6.5-8.0)
[2020-06-27 11:36] VITALS: BP 113/65; PULSE 73; RESP 16; TEMP 36.9; O2SAT 100
== END 2020-06-27 12:47 | disposition home or self-care (01) ==
PROVIDERS: Physician Assistant; Emergency Provider Emergency Medicine; PCP Internal Medicine
DX: K80.20 Calculus of gallbladder without cholecystitis without obstruction (principal); R10.11 Right upper quadrant pain; Z79.899 Other long term (current) drug therapy
CPT/HCPCS: 36415; 76705; 80048; 80076; 81003; 81025; 83690; 85025; 96361; 96374; 96375; 99284; J2405

== ENCOUNTER 2020-06-28 03:13 | Inpatient (IN) | payer OTHER, SELFPAY ==
[2020-06-28 03:17] VITALS: BP 105/77; PULSE 88; PULSE 90; RESP 20; TEMP 36.9; O2SAT 100; BMI 37.8
--- NOTE | 2020-06-28 03:29 | ED_ITS ---
HPI - Abdominal Pain General Chief Complaint: Abdominal Pain Stated Complaint: GALLSTONE PAIN Time Seen by Provider: 06/28/20 03:24 Source: patient Mode of arrival: EMS Limitations: no limitations History of Present Illness HPI narrative: patient with cholelithiasis with recurrent abdominal pain for last 3 months was seen here earlier yesterday for similar pain with nausea vomiting had ultrasound done which showed stone in the gallbladder neck with normal WBC count and LFT patient got better after pain management went home was feeling better had supper at 22:00 rice and beans went to sleep and woke up after 2 hours with increasing pain nausea vomited 1 time patient feels pain is getting worse and would like the surgery done if indicated MD elicited complaint: abdominal pain Related Data Previous Rx's Medication Instructions Recorded ondansetron 4 mg PO Q8H PRN 5 Days #20 tab 06/17/20 alum-mag hydroxide-simeth [Maalox 5 ml PO 5XD PRN #3000 ml 06/27/20 Advanced] lidocaine HCl [Lidocaine Viscous] 1 appl MUCOUS MEMBRANE BID PRN 06/27/20 #100 ml Allergies Allergy/AdvReac Type Severity Reaction Status Date / Time grapefruit [GRAPEFRUIT] Allergy Severe ANAPHYLAXIS Verified 06/28/20 03:17 Sulfa (Sulfonamide Allergy Severe ANAPHYLAXIS, Verified 06/28/20 03:17 Antibiotics) sweling of [SULFA (SULFONAMIDE the face ANTIBIOTICS)] and throat, throat & facial swelling nitrofurantoin Allergy Unknown rash on Verified 06/28/20 03:17 face, facial rash SEASONAL ALLERGIES Allergy Intermediate UNKNOWN Uncoded 06/17/20 09:21 [place] Allergy Unknown rash Uncoded 06/17/20 09:21 avocados Allergy Unknown rash Uncoded 06/17/20 09:21 cranberry juice Allergy Unknown rash Uncoded 06/17/20 09:21 grapefruit Allergy Unknown rash Uncoded 06/17/20 09:21 Review of Systems Review of Systems REVIEW OF SYSTEMS: Pertinent positives and negatives are stated above in the history. GEN: no fevers, chills, fatigue HEENT: no nasal congestion, sore throat, ear pain NEURO: no headache, dizziness, focal weakness PULM: no cough, shortness of breath CV: no chest pain, palpitations, LE edema ABD: no diarrhea : no dysuria, urgency, frequency SKIN: no rash ROS otherwise negative x 10 Physical Exam Vital Signs: Vital Signs: Last Vital Signs Temp 98.5 F 06/28/20 03:17 Pulse 88 06/28/20 03:17 Resp 18 06/28/20 03:45 BP 105/77 06/28/20 03:17 Pulse Ox 100 06/28/20 03:17 Body Mass Index 37.8 VITAL SIGNS: Reviewed. GENERAL: Well developed, well nourished, in moderate distress. HEAD: Normocephalic/atraumatic, EYES: PERRLA No pallor/icterus noted OROPHARYNX: Oral mucosa moist no oral lesions NECK: Supple, no adenopathy LUNGS: Normal breath sounds. No adventitious sounds or accessory muscle use CARDIOVASCULAR: Regular rate and rhythm without noted murmurs, no JVD or lower extremity edema. ABDOMEN: Soft, tender right upper quadrant, Jimenez sign positive non-distended with normal bowel sounds. No rigidity. . No palpable masses or hernias noted MUSCULOSKELETAL: No tenderness, deformities, EXTREMITIES: No cyanosis or edema. SKIN: no rashes, ulcerations, jaundice, pallor, or petechiae NEUROLOGIC: Alert and oriented x 3. Strength and sensation to light touch were grossly intact normal speech MDM - Abdominal Pain MDM Narrative Medical decision making narrative: patient with gall cholelithiasis with stone in the bladder neck with increasing pain coming back for continued pain case discussed with surgeon Dr. Hercules's PA will admit patient for surgery Medical Records Attestation: I reviewed the patient's medical records. Lab Data Attestation: I reviewed the patient's lab results. Result diagrams: 06/28/20 03:52 06/28/20 03:52 Labs: Lab Results 06/28/20 06/28/20 06/28/20 Range/Units 03:52 03:52 03:52 WBC 8.1 (4.8-10.8) X10*3/uL RBC 4.06 L (4.20-5.50) X10*6/uL Hgb 11.4 L (12.0-16.0) g/dl Hct 36.0 L (37-47) % MCV 88.7 (80-98) fL MCH 28.1 (27.0-33.0) pg MCHC 31.7 (31.0-35.0) g/dl RDW 14.1 (11.0-16.0) % Plt Count 284 (160-400) X10*3/uL MPV 10.1 (9.4-12.3) fL Immature Gran % (Auto) 0.2 (0.0-0.4) % Neut % (Auto) 63.8 (45-73) % Lymph % (Auto) 26.5 (20-40) % [place] % (Auto) 7.1 (2-11) % Eos % (Auto) 2.0 (0-4) % Baso % (Auto) 0.4 (0-2) % Lymph # (Auto) 2.1 (1.2-4.9) X10*3/uL [place] # (Auto) 0.6 (0.1-1.2) X10*3/uL Eos # (Auto) 0.2 (0.0-0.4) X10*3/uL Baso # (Auto) 0.0 (0.0-0.2) X10*3/uL Abs Immat Gran (auto) 0.02 (0.00-0.03) X10*3/uL Absolute Neuts (auto) 5.2 (2.0-8.3) X10*3/uL Absolute Nucleated RBC 0.000 (0.0-0.012) X10*3/uL Nucleated RBC % (auto) 0.0 (0.0-0.2) /100WBC PT 11.8 (10.8-13.0) SEC INR 1.0 (0.9-1.1) Sodium 140 (135-145) mmol/L Potassium 3.7 (3.3-5.1) mmol/l Chloride 105 (96-108) mmol/L Carbon Dioxide 27 (22-29) mmol/L Anion Gap 12 (12-20) BUN 9 (9-16) mg/dL Creatinine 0.67 (0.5-1.4) mg/dL Estim Creat Clear Calc 136.2 Estimated GFR > 60 Random Glucose 106 (60-115) mg/dL Calcium 8.6 (8.4-10.2) mg/dL Total Bilirubin 0.4 (0.0-1.0) mg/dL Direct Bilirubin < 0.2 (0.0-0.5) mg/dL AST 11 (5-31) U/L ALT 13 (0-31) U/L Alkaline Phosphatase 64 (39-117) U/L Total Protein 6.4 L (6.5-8.0) g/dL Albumin 4.0 (3.5-5.0) g/dL Lipase 40 (8-78) U/L Discharge Plan Discharge Clinical Impression: Biliary colic Patient Disposition: Admitted As [facility]patient [facility] Past Medical History Medical History Asthma Gallstones Gastritis Social History Social History Smoking Status: Never smoker Advance Directives: No Advance Directives Information Provided: No
[2020-06-28] MEDS: 0.9 % Sodium Chloride 1,000 ML 999 ML IVCONT (03:44)
[2020-06-28 03:45] VITALS: RESP 18
[2020-06-28] MEDS: Morphine Sulfate 4 MG/ML CARTRIDGE IVPUSH ×2 (03:45→11:03)
[2020-06-28 04:00] LABS: Basophils Percent Auto 0.4 % (0-2); Eosinophils Absolute Auto 0.2 X10*3/uL (0.0-0.4); Hemoglobin 11.4 g/dl (12.0-16.0); Imm Gran Abs Auto 0.02 X10*3/uL (0.00-0.03); Imm Gran Pct Auto 0.2 % (0.0-0.4); Lymphocytes Absolute Auto 2.1 X10*3/uL (1.2-4.9); Lymphocytes Percent Auto 26.5 % (20-40); Mean Corpuscular HGB Conc 31.7 g/dl (31.0-35.0); Mean Corpuscular Hemoglobin 28.1 pg (27.0-33.0); Mean Corpuscular Volume 88.7 fL (80-98); Mean Platelet Volume 10.1 fL (9.4-12.3); Monocytes Absolute Auto 0.6 X10*3/uL (0.1-1.2); Monocytes Percent Auto 7.1 % (2-11); Neutrophils Absolute Auto 5.2 X10*3/uL (2.0-8.3); Neutrophils Percent Auto 63.8 % (45-73); Platelet Count 284 X10*3/uL (160-400); Red Blood Count 4.06 X10*6/uL (4.20-5.50); Red Cell Distribution Width 14.1 % (11.0-16.0); White Blood Count 8.1 X10*3/uL (4.8-10.8)
--- NOTE | 2020-06-28 04:00 | PC.NURSE ---
phone orders taken by this specification writer from Kelechi Bruno at [id number]. readback and confirmed at this time.
[2020-06-28 04:02] LABS: MANUAL DIFF FLAG NO
[2020-06-28 04:31] LABS: Alanine Aminotransferase 13 U/L (0-31); Alkaline Phosphatase 64 U/L (39-117); Anion Gap 12 (12-20); Aspartate Amino Transferase 11 U/L (5-31); Bilirubin Direct < 0.2 mg/dL (0.0-0.5); Bilirubin Total 0.4 mg/dL (0.0-1.0); Blood Urea Nitrogen 9 mg/dL (9-16); Calcium 8.6 mg/dL (8.4-10.2); Carbon Dioxide 27 mmol/L (22-29); Chloride 105 mmol/L (96-108); Creatinine Clr Calc Pharmacy 136.2; Estimated Glomerular Filt Rate > 60; Glucose Random 106 mg/dL (60-115); Lipase 40 U/L (8-78); Potassium 3.7 mmol/l (3.3-5.1); Sodium 140 mmol/L (135-145); Total Protein 6.4 g/dL (6.5-8.0)
[2020-06-28 04:34] LABS: COVID-19 Test Negative (Negative); IDNOW Serial# 9DD0AD1C
[2020-06-28 04:38] LABS: Prothrombin Time 11.8 SEC (10.8-13.0)
--- NOTE | 2020-06-28 05:03 | PC.NURSE ---
CALLED TO GIVE REPORT TO FLOOR. UNAWARE OF ADMISSION. WILL CALL BACK FOR REPORT.
--- NOTE | 2020-06-28 05:22 | PC.NURSE ---
NURSE TO NURSE GIVEN TO SHAKIRA RN. WILL CALL WHEN A PHYSICAL BED IS PRESENT.
[2020-06-28] MEDS: 0.9 % Sodium Chloride 1,000 ML 80 ML IVCONT ×2 (06:50→17:54)
[2020-06-28 07:47] VITALS: BP 111/48; PULSE 80; RESP 18; TEMP 35.9; O2SAT 99
--- NOTE | 2020-06-28 08:57 | PM.CNGS ---
History of Present Illness Consult details Consult date: 06/28/20 <YADY Johns - Last Filed: 06/28/20 12:54> Reason for consult: gallstones <YADY Johns - Last Filed: 06/28/20 12:54> Requesting physician: Erik Melissa <YADY Johns - Last Filed: 06/28/20 12:54> Narrative: 20 yo female with pmhx of asthma presents for worsening Right sided ABD. She states that she originally started to have Right- side ABD pain in February. She presented to the ED at [place] and was found to have small gallstones but no acute findings of cholecystitis so she was discharged home. She presented to the ED here at [facility] again on 06/27 and U/S again showed stones however they were within the neck of the gallbladder but again there were no acute signs of cholecystits so she was again discharge with GI cocktail for symptom relief. She was feeling ok and attempted a small meal of rice and beans at around 10pm (her last oral intake) but around 3 AM she developed severe Right side ABD pain with nausea and represented to the ED. Patient was evaluated at bed-side this AM. She is resting in bed but appears uncomfortable. She reports that the pain started in the epigastric area and RUQ and radiates to the back. At its worse it is a 10/10 that is sharp. She gets relief with lying on her Left side and pain medication improves the pain to about a 4/10. She had one bout of vomiting in the ED and still complains of nausea. She denies diarrhea. Her labs are WNL. Further imaging was not doneas she was here less than 24 hours ago. Surgery was consulted for further evaluation. <YADY Johns - Last Filed: 06/28/20 12:54> Review of Systems Review of Systems: Yes all other systems are reviewed and are negative <YADY Johns Last Filed: 06/28/20 12:54> Gastrointestinal: Gastrointestinal: Reports abdominal pain (epigastric and RUQ), Reports nausea and Reports vomiting <YADY Johns Last Filed: 06/28/20 12:54> [facility] Past Medical History Medical History: Medical History Asthma Gallstones Gastritis <YADY Johns - Last Filed: 06/28/20 12:54> Social History Social History: Social History Household Members: Children Housing: Apartment Smoking Status: Never smoker Smoked in Last 30 Days: No Use of substances other than those prescribed or required for medical reasons: No Currently Displaying Signs/Symptoms of Drug Intoxication Withdrawal: No Any prior treatment program specific to substance use: No Have you been hit, kicked, punched, or otherwise hurt by someone within the past year? If so, by whom?: No Do you feel safe in your current relationship?: Yes Is there a partner from a previous relationship who is making you feel unsafe now?: No Are you made to feel afraid or neglected: No Advance Directives: No Advance Directives Information Provided: No Do you have thoughts of harming others: None Recently lost weight without trying: No <YADY Johns - Last Filed: 06/28/20 12:54> Meds Allergies/Adverse reactions: Allergies Allergy/AdvReac Type Severity Reaction Status Date / Time grapefruit [GRAPEFRUIT] Allergy Severe ANAPHYLAXIS Verified 06/28/20 03:17 Sulfa (Sulfonamide Allergy Severe ANAPHYLAXIS, Verified 06/28/20 03:17 Antibiotics) sweling of [SULFA (SULFONAMIDE the face ANTIBIOTICS)] and throat, throat & facial swelling nitrofurantoin Allergy Unknown rash on Verified 06/28/20 03:17 face, facial rash SEASONAL ALLERGIES Allergy Intermediate UNKNOWN Uncoded 06/17/20 09:21 Avacados Allergy Unknown rash Uncoded 06/17/20 09:21 avocados Allergy Unknown rash Uncoded 06/17/20 09:21 cranberry juice Allergy Unknown rash Uncoded 06/17/20 09:21 grapefruit Allergy Unknown rash Uncoded 06/17/20 09:21 <YADY Johns - Last Filed: 06/28/20 12:54> Physical Exam Vital Signs: Vital Signs: Last Vital Signs Temp 96.7 F L 06/28/20 07:47 Pulse 80 06/28/20 07:47 Resp 18 06/28/20 07:47 BP 111/48 L 06/28/20 07:47 Pulse Ox 99 06/28/20 07:47 Body Mass Index 37.8 <YADY Johns - Last Filed: 06/28/20 12:54> Const: General: no acute distress <YADY Johns - Last Filed: 06/28/20 12:54> Nutritional Appearance: obese <YADY Johns - Last Filed: 06/28/20 12:54> Resp: Effort & Inspection: normal respiratory effort <YADY Johns - Last Filed: 06/28/20 12:54> Auscultation: clear to auscultation bilaterally <YADY Johns - Last Filed: 06/28/20 12:54> Cardio: Rate: regular rate <YADY Johns - Last Filed: 06/28/20 12:54> Heart sounds: S1 normal heart sound present and S2 normal heart sound present <YADY Johns - Last Filed: 06/28/20 12:54> GI: Inspection: Yes normal to inspection and Yes Abdominal panniculus present <YADY Johns - Last Filed: 06/28/20 12:54> Palpation (GI): Soft to palpation and Tenderness to palpation present (GI) in the epigastrum, in the RUQ and Jimenez's sign positive <YADY Johns Last Filed: 06/28/20 12:54> Auscultation: normal bowel sounds <YADY Johns - Last Filed: 06/28/20 12:54> Skin: General skin exam: no rashes or lesions noted <YADY Johns - Last Filed: 06/28/20 12:54> Psych: Appearance: grossly normal <YADY Johns - Last Filed: 06/28/20 12:54> Speech and movement: Normal speech and movement present <YADY Johns - Last Filed: 06/28/20 12:54> Affect: normal affect <YADY Johns Last Filed: 06/28/20 12:54> Results Labs Result diagrams: : 06/28/20 03:52 06/28/20 03:52 <YADY Johns - Last Filed: 06/28/20 12:54> Labs: Abnormal lab results 06/28/20 06/28/20 Range/Units 03:52 03:52 RBC 4.06 L (4.20-5.50) X10*6/uL Hgb 11.4 L (12.0-16.0) g/dl Hct 36.0 L (37-47) % Total Protein 6.4 L (6.5-8.0) g/dL Short CBC 06/28/20 Range/Units 03:52 WBC 8.1 (4.8-10.8) X10*3/uL Hgb 11.4 L (12.0-16.0) g/dl Hct 36.0 L (37-47) % Plt Count 284 (160-400) X10*3/uL BMP 06/28/20 03:52 Sodium 140 Potassium 3.7 Chloride 105 Carbon Dioxide 27 BUN 9 Creatinine 0.67 Calcium 8.6 Liver Function 06/28/20 Range/Units 03:52 Total Bilirubin 0.4 (0.0-1.0) mg/dL Direct Bilirubin < 0.2 (0.0-0.5) mg/dL AST 11 (5-31) U/L ALT 13 (0-31) U/L Alkaline Phosphatase 64 (39-117) U/L Albumin 4.0 (3.5-5.0) g/dL All other labs normal. <YADY Johns - Last Filed: 06/28/20 12:54> Assessment and Plan (1) Biliary colic: Problem details: 3 months of RUQ pain, worsening over the last 24 hours. U/S suggestive of stone blocking the neck of the gallbladder causing biliary colic. Do to the ongoing recurrence of the ABD pain patient wishes to have CCY. WBC and LFT WNL. <YADY Johns - Last Filed: 06/28/20 12:54> Status: Acute <YADY Johns - Last Filed: 06/28/20 12:54> Admit to med/surg NPO Pain mgmt and IVF Will plan for CCY, possibly tomorrow. We discussed risks and benefits of surgery and laproscopic vs open. <YADY Johns - Last Filed: 06/28/20 12:54> . General Surgery Attending - Fred Hercules M.D. Patient was evaluated and examined at the bedside with Mr. Kelechi Shaw PA-C. I confirm above findings and plan as documented. Although patient's WBC is not elevated and there is little ultrasound findings of inflammatory/scar changes in GB and surrounding tissue, she has clinical history that is c/w episodic colic and cholecystitis. As she has been in and out of ER with this recurrent pain, I think it's reasonable to perform laparoscopic cholecystectomy during this hospitalization. Patient herself certainly wishes to not leave the hospital without surgery. I spoke w/ the patient re: B/R of surgery, i.e. laparoscopic possible open cholecystectomy with possible cholangiogram. She understands the risks of biliary duct or liver injury that may require additional surgeries in the future that may cause chronic and permanent gastrointestinal disability, need for blood transfusions with attendant infectious disease risks, as well as bleeding, infection, postop abscess, postop bowel linjury that require additional surgeries, and risks of general anesthesia including stroke, heart attack, long-term ventilatory assistance after surgery, and other major and minor risks of surgery and anesthesia. She understands all of these risks, and importantly, the fact that her increased BMI and near morbid obesity will increase the risks of almost all of these complications. Understanding these risks, patient requests surgery to occur as soon as possible. I have notified the O.R. and scheduled her. Will keep NPO. <Mariel Hercules MD - Last Filed: 06/28/20 13:10>
[2020-06-28] MEDS: ondansetron HCL 4 MG/2 ML VIAL IVPUSH (11:41)
[2020-06-28 12:00] VITALS: BP 95/48; PULSE 71; RESP 16; TEMP 36.6; O2SAT 100
[2020-06-28 15:08] VITALS: BP 105/55; PULSE 56; RESP 17; TEMP 36.1; O2SAT 100
[2020-06-28 23:44] VITALS: BP 121/51; PULSE 67; RESP 18; TEMP 36.8; O2SAT 98
[2020-06-29 03:19] VITALS: BP 105/55; PULSE 67; RESP 16; TEMP 36.2; O2SAT 100
[2020-06-29] MEDS: 0.9 % Sodium Chloride 1,000 ML 80 ML IVCONT ×2 (05:50→18:00)
[2020-06-29 08:00] VITALS: BP 118/69; PULSE 86; RESP 20; TEMP 36.2; O2SAT 100
--- NOTE | 2020-06-29 09:04 | MHC.CM.PN ---
PATIENT IS IN THE SHOWER DURING CM ASSESSMENT ATTEMPT. CONTACT CARD LEFT BEDSIDE. PER REVIEW OF CHART, PATIENT IS INDEPENDENT WITH HER ADLS. RELIES ON INHALERS AND NEBULIZER. ACCORDING TO REPORT, PATIENT IS SCHEDULED FOR SURGERY THIS MORNING. CASE MANAGEMENT FOLLOWING FOR DISCHARGE NEEDS
--- NOTE | 2020-06-29 09:22 | MHC.CM.PN ---
CASE MANAGEMENT RETURNED TO ROOM TO FIND THAT PATIENT WILL NOT BE HAVING HER SURGERY TODAY. IT IS NOW SCHEDULED FOR TOMORROW; HOWEVER, PATIENT INFORMS CM THAT IF SURGEON IS ABLE TO PERFORM TONIGHT, THEN SHE WILL BE PLACED ON THE LIST. PATIENT INFORMS THIS BUILDING RENTAL MANAGER THAT ALTHOUGH SHE HAS HER INHALERS AND NEBULIZER, SHE HAS NOT HAD TO RELY ON THEM FOR ALMOST A YEAR NOW. PATIENT WILL BE ABLE TO SECURE TRANSPORT HOME.
--- NOTE | 2020-06-29 09:29 | MHC.CM.PN ---
PCP IS SETH SUERO. UPDATE MADE IN [email or web address] QUICK TASK.
[2020-06-29 11:13] VITALS: BP 107/53; PULSE 68; RESP 18; TEMP 36.2; O2SAT 100
--- NOTE | 2020-06-29 12:30 | PM.PNGS ---
Subjective Subjective Date of Service: 06/29/20 <YADY Johns - Last Filed: 06/29/20 12:34> 06/29/20 <Mariel Hercules MD - Last Filed: 06/29/20 21:43> Patient reports: no new complaints <YADY Johns - Last Filed: 06/29/20 12:34> Interval history: Chen states that she feels ok. She continues to have discomfort however it does not seem as severe. <YADY Johns - Last Filed: 06/29/20 12:34> Physical Exam Vital Signs: Vital Signs: Last Vital Signs Temp 97.2 F 06/29/20 11:13 Pulse 68 06/29/20 11:13 Resp 18 06/29/20 11:13 BP 107/53 L 06/29/20 11:13 Pulse Ox 100 06/29/20 11:13 Body Mass Index 37.8 <YADY Johns - Last Filed: 06/29/20 12:34> Const: General: cooperative, alert and awake <YADY Johns - Last Filed: 06/29/20 12:34> GI: Inspection: Yes normal to inspection and Yes Abdominal panniculus present <YADY Johns - Last Filed: 06/29/20 12:34> Palpation (GI): Tenderness to palpation present (GI) in the epigastrum and in the RUQ <YADY Johns - Last Filed: 06/29/20 12:34> Skin: General skin exam: no rashes or lesions noted <YADY Johns - Last Filed: 06/29/20 12:34> Extrem: General: Yes no calf tenderness <YADY Johns - Last Filed: 06/29/20 12:34> Progress Note: A&P Assessment and plan (1) Biliary colic: Problem details: 3 months of RUQ pain. U/S suggestive of stone blocking the neck of the gallbladder causing biliary colic. Do to the ongoing recurrence of the ABD pain patient wishes to have CCY. WBC and LFT WNL. <YADY Johns - Last Filed: 06/29/20 12:34> Status: Acute <YADY Johns - Last Filed: 06/29/20 12:34> Assessment and Plan: Plan for CCY this coming week. Continue pain mgmt Encourage OOB Since she is not having the procedure today we will advance her diet to clear liquids. <YADY Johns - Last Filed: 06/29/20 12:34> . General Surgery Attending - Fred Hercules M.D. Note from rounding 8 am Tuesday: Patient was evaluated and examined at the bedside with Mr. Kelechi Shaw PA-C. I confirm above findings and plan as documented. I explained to the patient that due to another emergency surgery early this morning, patient's surgery will be postponed til tomorrow. <Mariel Hercules MD - Last Filed: 06/29/20 21:43> Fall Risk Details Current Medications: Current Medications Generic Name Dose Route Start Last Admin Trade Name Freq PRN Reason Stop Dose Admin Acetaminophen 650 mg 06/28/20 04:10 Acetaminophen 325 Mg Tablet PO Q6H PRN Pain, Mild (Pain Scale 1-3) Sodium Chloride 1,000 mls @ 80 mls/hr 06/28/20 04:15 06/29/20 05:50 Ns IVCONT 80 mls/hr .[id number] CASTILLO Administration Morphine Sulfate 4 mg 06/28/20 04:13 06/28/20 11:03 Morphine Sulfate 4 Mg/Ml Cartridge IVPUSH 4 mg Q4H PRN Administration Pain, Severe (Pain Scale 7-10) Ondansetron HCl 4 mg 06/28/20 04:12 06/28/20 11:41 Ondansetron Hcl 4 Mg/2 Ml Vial IVPUSH 4 mg Q8H PRN Administration Nausea and Vomiting <YADY Johns - Last Filed: 06/29/20 12:34> Time Spent With Patient Time: Total time spent is greater than 50% in coordination of care (as documented) at patient's floor/unit and/or counseling patient: <YADY Johns - Last Filed: 06/29/20 12:34> Time with patient: less than 15 minutes <Mariel Hercules MD - Last Filed: 06/29/20 21:43>
[2020-06-29 15:26] VITALS: BP 121/66; PULSE 80; RESP 18; TEMP 36.6; O2SAT 100
[2020-06-29 19:09] VITALS: BP 106/64; PULSE 79; RESP 18; TEMP 36.5; O2SAT 96
[2020-06-29] MEDS: Acetaminophen 325 MG TABLET 650 MG PO (19:57)
[2020-06-30] VITALS (16 sets, daily range): BP systolic 98–126; BP diastolic 55–71; PULSE 67–115; RESP 14–18; TEMP 36.1–37.5; O2SAT 93–100; BMI 37.8
--- NOTE | 2020-06-30 09:33 | HO.ANESPROP2 ---
FORMERLY [facility], [facility] Past Medical History Medical History Asthma Gallstones Gastritis Social History Social History Household Members: Children Housing: Apartment Smoking Status: Never smoker Smoked in Last 30 Days: No Use of substances other than those prescribed or required for medical reasons: No Currently Displaying Signs/Symptoms of Drug Intoxication Withdrawal: No Any prior treatment program specific to substance use: No Have you been hit, kicked, punched, or otherwise hurt by someone within the past year? If so, by whom?: No Do you feel safe in your current relationship?: Yes Is there a partner from a previous relationship who is making you feel unsafe now?: No Are you made to feel afraid or neglected: No Advance Directives: No Advance Directives Information Provided: No Do you have thoughts of harming others: None Do you have a plan to hurt others: No Plan Recently lost weight without trying: No service: No Current occupational status: employed Meds Allergies Allergy/AdvReac Type Severity Reaction Status Date / Time grapefruit [GRAPEFRUIT] Allergy Severe ANAPHYLAXIS Verified 06/28/20 03:17 Sulfa (Sulfonamide Allergy Severe ANAPHYLAXIS, Verified 06/28/20 03:17 Antibiotics) sweling of [SULFA (SULFONAMIDE the face ANTIBIOTICS)] and throat, throat & facial swelling nitrofurantoin Allergy Unknown rash on Verified 06/28/20 03:17 face, facial rash SEASONAL ALLERGIES Allergy Intermediate UNKNOWN Uncoded 06/17/20 09:21 Avacados Allergy Unknown rash Uncoded 06/17/20 09:21 avocados Allergy Unknown rash Uncoded 06/17/20 09:21 cranberry juice Allergy Unknown rash Uncoded 06/17/20 09:21 grapefruit Allergy Unknown rash Uncoded 06/17/20 09:21 Exam Exam Date and Time: June 30, 2020 0933 Height,Weight and Vital Signs: Height 5 ft 1 in Weight 90.718 kg Last Vital Signs Temp 97.5 F 06/30/20 07:38 Pulse 71 06/30/20 07:38 Resp 18 06/30/20 07:38 BP 110/58 L 06/30/20 07:38 Pulse Ox 99 06/30/20 07:38 Pertinent Lab Results Pertinent Lab Results: Laboratory Tests 06/28/20 06/28/20 06/28/20 03:52 03:52 03:52 WBC 8.1 RBC 4.06 L Hgb 11.4 L Hct 36.0 L MCV 88.7 MCH 28.1 MCHC 31.7 RDW 14.1 Plt Count 284 MPV 10.1 Immature Gran % (Auto) 0.2 Neut % (Auto) 63.8 Lymph % (Auto) 26.5 Bill[place] % (Auto) 7.1 Eos % (Auto) 2.0 Baso % (Auto) 0.4 Lymph # (Auto) 2.1 [place] # (Auto) 0.6 Eos # (Auto) 0.2 Baso # (Auto) 0.0 Abs Immat Gran (auto) 0.02 Absolute Neuts (auto) 5.2 Absolute Nucleated RBC 0.000 Nucleated RBC % (auto) 0.0 PT 11.8 INR 1.0 Sodium 140 Potassium 3.7 Chloride 105 Carbon Dioxide 27 Anion Gap 12 BUN 9 Creatinine 0.67 Estim Creat Clear Calc 136.2 Estimated GFR > 60 Random Glucose 106 Calcium 8.6 Total Bilirubin 0.4 Direct Bilirubin < 0.2 AST 11 ALT 13 Alkaline Phosphatase 64 Total Protein 6.4 L Albumin 4.0 Lipase 40 COVID-19 (BON) COVID-19 JRapid Com 06/28/20 04:01 WBC RBC Hgb Hct MCV MCH MCHC RDW Plt Count MPV Immature Gran % (Auto) Neut % (Auto) Lymph % (Auto) [place] % (Auto) Eos % (Auto) Baso % (Auto) Lymph # (Auto) [place] # (Auto) Eos # (Auto) Baso # (Auto) Abs Immat Gran (auto) Absolute Neuts (auto) Absolute Nucleated RBC Nucleated RBC % (auto) PT INR Sodium Potassium Chloride Carbon Dioxide Anion Gap BUN Creatinine Estim Creat Clear Calc Estimated GFR Random Glucose Calcium Total Bilirubin Direct Bilirubin AST ALT Alkaline Phosphatase Total Protein Albumin Lipase COVID-19 (BON) Negative COVID-19 Clin Com See Note Airway Mallampati Class: I TM Dist: >3cm Neck ROM: Full Loose/Missing/Broken Teeth: No Heart: RRR Lungs: CTA Assessment and Plan Assessment Anesthesia Assessment: Anesthesia Plan Discussed and Chart Reviewed Final Anesthetic Review NPO: Yes ASA Class: II Final Preanesthetic Review: Meds/Allgs Chart Reviewed, Consent Obtained/Reviewed and Anes Risks/Benef Reviewed Patient Risk: Low Procedure Risk: Intermediate Anesthetic Plan Anesthetic Plan: GA Disposition: Standard PACU
--- NOTE | 2020-06-30 10:11 | MHC.SHP ---
Pre-Procedural Eval Section A The patient is an INPATIENT: Yes Changes since office visit: No Cold of Flu in the past 2 weeks, No New Medical Problems and No Changes in Medication The History & Physical has been completed within 30 days and I have reviewed it.: Yes Section B Chief Complaint: cholecystectomy Allergies: Allergies Allergy/AdvReac Type Severity Reaction Status Date / Time grapefruit [GRAPEFRUIT] Allergy Severe ANAPHYLAXIS Verified 06/28/20 03:17 Sulfa (Sulfonamide Allergy Severe ANAPHYLAXIS, Verified 06/28/20 03:17 Antibiotics) sweling of [SULFA (SULFONAMIDE the face ANTIBIOTICS)] and throat, throat & facial swelling nitrofurantoin Allergy Unknown rash on Verified 06/28/20 03:17 face, facial rash SEASONAL ALLERGIES Allergy Intermediate UNKNOWN Uncoded 06/17/20 09:21 Avacados Allergy Unknown rash Uncoded 06/17/20 09:21 avocados Allergy Unknown rash Uncoded 06/17/20 09:21 cranberry juice Allergy Unknown rash Uncoded 06/17/20 09:21 grapefruit Allergy Unknown rash Uncoded 06/17/20 09:21 Plan Diagnosis/Plan: Unchanged Patient has been examined and remains a candidate for the planned procedure I reviewed the procedure, risks, and alternatives in detail and she consents to a laparoscopic or possible open cholecystectomy.
[2020-06-30] MEDS: Lactated Ringers 1,000 ML 50 ML IVCONT (10:12)
--- NOTE | 2020-06-30 11:37 | P.BOP_ITS ---
Brief Operative Note Date of Service: 06/30/20 Pre-op diagnosis: Acute cholecystitis, cholelithiasis Post-op diagnosis: same Procedure: Laparoscopic cholecystectomy Implants: None Surgeon: Francisco Javier Romero MD Anesthesia: FELICIANO Building Superintendent: Shelbi Jefferson Estimated blood loss (mL): 2 Pathology: other (Gallbladder) Condition: stable Disposition: PACU
--- NOTE | 2020-06-30 11:38 | P.OP_ITS ---
Operative Note Operative Note Date of Service: 06/30/20 Narrative: Preoperative diagnosis: Acute cholecystitis, cholelithiasis Postoperative diagnosis: Same Procedure: Laparoscopic cholecystectomy Surgeon: Francisco Javier Romero MD [employer] Architect: MARCIANO Johnson Anesthesia: General endotracheal Indications for procedure: 20-year-old female presented with complaints of abdominal pain in the right upper quadrant found to have a thickened gallbladder with gallstones. Patient mid by Dr. Hercules and arrangements made for laparoscopic cholecystectomy. Operative findings: Patient was found to have adhesions to the undersurface of the gallbladder in several gallstones within the gallbladder. Specimen: Gallbladder Complications: None Estimated blood loss: 2 mL Procedure details: Patient was brought to the OR placed in a supine position. After administering general anesthesia the patient's abdomen was prepped with ChloraPrep and draped in a sterile fashion. A surgical time-out was called the consent confirmed. Patient received preoperative antibiotics to be today boots were placed. Local anesthesia consisting of 0.75% Sensorcaine with epinephrine was infiltrated in a transverse fashion just above the umbilicus. An incision was then made with a scalpel carried out through subcutaneous tissue. A Veress needle was inserted while elevating abdominal cavity with towel clips. After positive drop test the abdomen was insufflated to a pressure of 15 mm of merc ury. The Veress needle was then removed and a 5 mm trocar inserted. The camera was inserted in the abdomen explored. No injury was noted from the trocar insertion site. A 12 mm trocar was placed in the epigastrium and 2 5 mm trocars placed in the right upper quadrant. The patient was then placed in a reverse Trendelenburg position and rotated to the left. Gallbladder was grasped at the fundus and retracted cephalad. Adhesions were taken down off the undersurface of the gallbladder using electrocautery and the Dolphin dissector. A 2nd grasper was then used to grasp the infundibulum and retracted away from the liver bed. Peritoneum was then taken down off the infundibulum to reveal the junction with the cystic duct. Cystic artery was noted slightly medial to this with the cystic node slightly posterior. After a critical view was obtained the cystic duct was doubly clipped and divided. The cystic artery was also doubly clipped and divided. The gallbladder was then dissected off the liver bed using electrocautery. Hemostasis was assured all times using electrocautery. Gallbladder was placed in Endo-Catch bag and brought out through the epigastric incision. The wounds were irrigated and suctioned dry. No bleeding or bile leak could be identified. CO2 was then evacuated and all trocars removed. Fascia was closed at the epigastric incision using a [id number] Polysorb suture. Skin was closed in all incisions using a subcuticular 4-0 Polysorb suture. Steri-Strips 2 x 2 gauze and Tegaderm were then applied to all 4 incisions. The patient tolerated the procedure well. Sponge, instrument, and needle counts reported as correct. The patient was transferred to PACU in stable condition.
[2020-06-30] MEDS: fentaNYL citrate/PF 100 MCG/2 ML VIAL 25 MCG IVPUSH ×2 (12:24→12:34)
[2020-06-30] MEDS: ondansetron HCL 4 MG/2 ML VIAL IVPUSH (13:03)
[2020-06-30] MEDS: Morphine Sulfate 4 MG/ML CARTRIDGE IVPUSH (15:30)
--- NOTE | 2020-06-30 17:12 | P.DS_ITS ---
DS: Providers Provider Date of admission: 06/28/20 03:54 Date of discharge: 06/30/20 Primary care physician: Unknown Physician Attending physician on admission: Francisco Javier Romero DS: Diagnosis Discharge Diagnosis (1) Biliary colic: Status: Acute Problem details: 3 months of RUQ pain. U/S suggestive of stone blocking the neck of the gallbladder causing biliary colic. Do to the ongoing recurrence of the ABD pain patient wishes to have CCY. WBC and LFT WNL. DS: Medications Discharge Medications Home Medications: Previous Rx's Medication Instructions Recorded ondansetron 4 mg PO Q8H PRN 5 Days #20 tab 06/17/20 Lidocaine Viscous 1 appl MUCOUS MEMBRANE BID PRN 06/27/20 #100 ml alum-mag hydroxide-simeth [Maalox 5 ml PO 5XD PRN #3000 ml 06/27/20 Advanced] oxycodone 5 mg PO Q6H PRN #14 tab 06/30/20 DS: Summary Hospital Course Hospital Course: 20 yo female with a past history of asthma presents for worsening Right sided ABD. She states that she originally started to have Right- side ABD pain in February. She presented to the ED at [facility] and was found to have small gallstones but no acute findings of cholecystitis so she was discharged home. She presented to the ED here at [facility] again on 06/27 and U/S again showed stones however they were within the neck of the gallbladder but again there were no acute signs of cholecystits so she was again discharge with GI cocktail for symptom relief. She was feeling ok and attempted a small meal of rice and beans at around 10pm (her last oral intake) but around 3 AM she developed severe Right side ABD pain with nausea and represented to the ED. She was admitted to the surgical service by Dr. Hercules and arrangements made for a laparoscopic cholecystectomy on 06/29/2020. Unfortunately, the surgery needed to be delayed and was performed by Dr. Romero on Tuesday06/30/2020. Operative findings were consistent with acute cholecystitis due to cholelithiasis with many adhesions noted to the gallbladder wall. She tolerated the procedure well and was observed for several hours postoperatively. She tolerated a regular diet without nausea or vomiting and was later discharged to home in stable condition. She should avoid fatty and fried foods for one month following the surgery and avoid all lifting greater than 10 pounds for two weeks. She should follow up in my office in one week for a wound check. Time Spent with Patient Time attestation: Total time spent providing and/or coordinating discharge services: Physical Exam Vital Signs: Vital Signs: Last Vital Signs Temp 97.0 F 06/30/20 16:00 Pulse 75 06/30/20 16:00 Resp 17 06/30/20 16:00 BP 121/59 L 06/30/20 16:00 Pulse Ox 100 06/30/20 16:00 Body Mass Index 37.8 Const: General: cooperative, comfortable and well developed; No confusion Nutritional Appearance: well nourished Orientation/consciousness: patient oriented x3 and No confusion Eyes: Sclerae: sclerae normal EOM: EOMs intact bilaterally Neck: Neck: Yes normal visual inspection Resp: Effort & Inspection: normal respiratory effort, no cough and no respiratory distress Cardio: Jugular venous distension: no JVD Rate: regular rate Rhythm: regular rhythm GI: Other: well healed incisions without redness or discharge, s/p lap choley Inspection: Yes normal to inspection Palpation (GI): Soft to palpation, nontender, no guarding and not rigid Percussion: Yes normal to percussion Auscultation: normal bowel sounds Skin: General skin exam: dry skin Rashes: no rashes Neuro: General: patient oriented x3, no focal motor deficits and No confusion Extrem: General: Yes full ROM and Yes no clubbing, cyanosis or edema DS: Data Data Completed and Pending Completed studies during hospitalization [Text1]: Procedures Resection of Gallbladder, Percutaneous Endoscopic Approach (06/28/20) Pending studies at discharge: Pending at discharge 06/30/20 11:27 Surgical [PTH] Routine Labs on day of discharge: 06/28/20 03:36 Morphine Sulfate 4 mg IVPUSH ONCE ONE 06/28/20 03:45 0.9 % Sodium Chloride [Ns] 1,000 ml IVCONT 999 mls/hr 06/28/20 03:52 Basic Metabolic Panel Stat Complete Blood Count Auto Diff Stat Lipase Stat Liver Panel Stat Prothrombin Time INR Stat 06/28/20 04:01 COVID-19 ID NOW ([place]) Stat 06/28/20 04:10 Acetaminophen [Tylenol] 650 mg PO Q6H PRN 06/28/20 04:12 ondansetron HCL [Zofran] 4 mg IVPUSH Q8H PRN 06/28/20 04:13 Morphine Sulfate 4 mg IVPUSH Q4H PRN 06/28/20 04:15 0.9 % Sodium Chloride [Ns] 1,000 ml IVCONT 80 mls/hr 06/28/20 06:18 Activity [Up ad saul] .Continous 06/28/20 06:20 Vital Signs Q4HR 06/28/20 Breakfast NPO Diet 06/29/20 Breakfast Clear Liquid Diet 06/30/20 09:00 Surgical preparation, general NOW cefoTEtan disod/Dextrose,Iso [Cefotan] 2 gm in 50 ml IV PREOP 06/30/20 09:02 Compression Therapy QSHIFT 06/30/20 09:25 cefoTEtan disodium [Cefotan] 2 gm .ROUTE .STK-MED ONE 06/30/20 10:14 Bupivacaine MPF 0.75 % w/EPI [Sensorcaine MPF 0.75%/EPI 1:200,000] 30 ml .ROUT E .STK-MED ONE 06/30/20 10:15 Lactated Ringers [Lr] 1,000 ml IVCONT 50 mls/hr 06/30/20 10:18 Lidocaine HCl 2 % MPF [Xylocaine 2 % MPF] 5 ml .ROUTE .STK-MED ONE Midazolam HCl/PF [Versed] 2 mg .ROUTE .STK-MED ONE Rocuronium [place] [Zemuron] 100 mg IV .STK-MED ONE fentaNYL citrate/PF [Sublimaze] 2,500 mcg .ROUTE .STK-MED ONE propofoL [Diprivan] 200 mg IVPUSH .STK-MED ONE 06/30/20 10:25 Albuterol Sulfate (0.083%) [Ventolin (0.083%)] 2.5 mg INHALE ONCE PRN Promethazine HCL [Phenergan] 6.25 mg 0.9 % Sodium Chloride [Ns] 50 ml IV ONCE fentaNYL citrate/PF [Sublimaze] 25 mcg IVPUSH Q5M PRN fentaNYL citrate/PF [Sublimaze] 50 mcg IVPUSH Q5M PRN oxyCODONE HCl Immed Release [Roxicodone] 10 mg PO ONCE PRN oxyCODONE HCl Immed Release [Roxicodone] 5 mg PO ONCE PRN 06/30/20 10:50 Esmolol HCl [Brevibloc] 100,000 mcg .ROUTE .STK-MED ONE 06/30/20 11:11 Ketorolac Tromethamine [Toradol] 30 mg .ROUTE .STK-MED ONE dexAMETHasone sod phosphate [Decadron] 4 mg .ROUTE .STK-MED ONE ondansetron HCL [Zofran] 4 mg .ROUTE .STK-MED ONE 06/30/20 11:29 Sugammadex Sodium [Bridion] 200 mg IVPUSH .STK-MED ONE 06/30/20 11:33 Transfer Order Routine 06/30/20 12:16 Acetaminophen [Tylenol] 325 mg .ROUTE .STK-MED ONE fentaNYL citrate/PF [Sublimaze] 100 mcg .ROUTE .STK-MED ONE oxyCODONE HCl Immed Release [Roxicodone] 5 mg .ROUTE .STK-MED ONE 06/30/20 12:17 ondansetron HCL [Zofran] 4 mg .ROUTE .STK-MED ONE 06/30/20 13:00 ondansetron HCL [Zofran] 4 mg .ROUTE .STK-MED ONE 06/30/20 13:22 Zolpidem Tartrate [Ambien] 5 mg PO BEDTIME PRN oxyCODONE HCl Immed Release [Roxicodone] 5 mg PO Q4H PRN 06/30/20 13:22 Incentive Spirometry NOW 06/30/20 16:00 0.9 % Sodium Chloride Flush [NS Flush] 3 ml IVFLUSH QSHIFT Laboratory Last Values WBC 8.1 X10*3/uL (4.8-10.8) 06/28/20 03:52 RBC 4.06 X10*6/uL (4.20-5.50) L 06/28/20 03:52 Hgb 11.4 g/dl (12.0-16.0) L 06/28/20 03:52 Hct 36.0 % (37-47) L 06/28/20 03:52 MCV 88.7 fL (80-98) 06/28/20 03:52 MCH 28.1 pg (27.0-33.0) 06/28/20 03:52 MCHC 31.7 g/dl (31.0-35.0) 06/28/20 03:52 RDW 14.1 % (11.0-16.0) 06/28/20 03:52 Plt Count 284 X10*3/uL (160-400) 06/28/20 03:52 MPV 10.1 fL (9.4-12.3) 06/28/20 03:52 Immature Gran % (Auto) 0.2 % (0.0-0.4) 06/28/20 03:52 Neut % (Auto) 63.8 % (45-73) 06/28/20 03:52 Lymph % (Auto) 26.5 % (20-40) 06/28/20 03:52 [place] % (Auto) 7.1 % (2-11) 06/28/20 03:52 Eos % (Auto) 2.0 % (0-4) 06/28/20 03:52 Baso % (Auto) 0.4 % (0-2) 06/28/20 03:52 Lymph # (Auto) 2.1 X10*3/uL (1.2-4.9) 06/28/20 03:52 [place] # (Auto) 0.6 X10*3/uL (0.1-1.2) 06/28/20 03:52 Eos # (Auto) 0.2 X10*3/uL (0.0-0.4) 06/28/20 03:52 Baso # (Auto) 0.0 X10*3/uL (0.0-0.2) 06/28/20 03:52 Abs Immat Gran (auto) 0.02 X10*3/uL (0.00-0.03) 06/28/20 03:52 Absolute Neuts (auto) 5.2 X10*3/uL (2.0-8.3) 06/28/20 03:52 Absolute Nucleated RBC 0.000 X10*3/uL (0.0-0.012) 06/28/20 03:52 Nucleated RBC % (auto) 0.0 /100WBC (0.0-0.2) 06/28/20 03:52 PT 11.8 SEC (10.8-13.0) 06/28/20 03:52 INR 1.0 (0.9-1.1) 06/28/20 03:52 Sodium 140 mmol/L (135-145) 06/28/20 03:52 Potassium 3.7 mmol/l (3.3-5.1) 06/28/20 03:52 Chloride 105 mmol/L (96-108) 06/28/20 03:52 Carbon Dioxide 27 mmol/L (22-29) 06/28/20 03:52 Anion Gap 12 (-) 06/28/20 03:52 BUN 9 mg/dL (9-16) 06/28/20 03:52 Creatinine 0.67 mg/dL (0.5-1.4) 06/28/20 03:52 Estim Creat Clear Calc 136.2 06/28/20 03:52 Estimated GFR > 60 06/28/20 03:52 Random Glucose 106 mg/dL (60-115) 06/28/20 03:52 Calcium 8.6 mg/dL (8.4-10.2) 06/28/20 03:52 Total Bilirubin 0.4 mg/dL (0.0-1.0) 06/28/20 03:52 Direct Bilirubin < 0.2 mg/dL (0.0-0.5) 06/28/20 03:52 AST 11 U/L (5-31) 06/28/20 03:52 ALT 13 U/L (0-31) 06/28/20 03:52 Alkaline Phosphatase 64 U/L (39-117) 06/28/20 03:52 Total Protein 6.4 g/dL (6.5-8.0) L 06/28/20 03:52 Albumin 4.0 g/dL (3.5-5.0) 06/28/20 03:52 Lipase 40 U/L (8-78) 06/28/20 03:52 COVID-19 ([facility]) Negative (Negative) 06/28/20 04:01 COVID-19 Clin Com See Note 06/28/20 04:01 Discharge Plan Discharge Patient Disposition: Home, Self-Care Referrals: Francisco Javier Romero MD [Physician] - 1 Week Physician,Unknown [Primary Care Provider] - Discharge Medications: New oxycodone 5 mg tablet 5 mg PO Q6H PRN (Reason: pain) Qty: 14 RF: 0 Continued ondansetron 4 mg tablet,disintegrating 4 mg PO Q8H PRN (Reason: nausea and vomiting) 5 Days Qty: 20 RF: 0 alum-mag hydroxide-simeth [Maalox Advanced] 200-200-20 mg/5 mL suspension 5 ml PO 5XD PRN (Reason: indigestion) Qty: 3000 RF: 0 Lidocaine Viscous 2 % solution 1 appl mucous membrane BID PRN (Reason: pain) Qty: 100 RF: 0 Discharge Orders: Discharge Order (Routine); Ordered 06/30/20 Ordered By: Francisco Javier Romero Diet: low fat, low cholesterol Activity on Discharge: No heavy lifting Stand Alone Forms: Work/School Release Discharge Date/Time: 06/30/20 19:10 Activity Restrictions/Additional Instructions: If the incision area is tender, you may apply an ice pack for short intervals (No more than 20 minutes on, followed by at least 20 minutes off). Do not apply heat. Do not use creams, lotions, or topical antibiotics unless instructed to do so by your surgeon. These can cause infection or allergic reaction. Ok to shower. Remove clear dressings 3 days following your procedure. You have steri strips (small white cloth strips) covering your incision- these will fall off ~1 week. Call Your Doctor If: -Your temperature exceeds 101.5? F -You experience excessive pain or swelling -You have an unexpected reaction to medication -You have excessive bleeding -You experience continued vomiting/nausea -Your incision begins to separate -Your incision shows signs of infection such as increased redness, swelling, excessive pain, drainage (light blood or clear fluid is normal) or heat Visit Report Forms: Patient Portal Discharge page Care Plan Goals: Return to baseline health and activity. Health Concerns: Acute cholecystitis, s/p lap CCY Plan of Treatment: s/p lap CCY, observation
== END 2020-06-30 19:10 | disposition home or self-care (01) | DRG 263 ==
LOC: HO.ED 04:00 → HO.S3 04:54
PROVIDERS: Surgery; Admitting Provider Internal Medicine; Emergency Provider Internal Medicine; Visit Provider Surgery
PROC: 0FT44ZZ Resection of Gallbladder, Percutaneous Endoscopic Approach (ICD-10-PCS; CPT 47562; principal; 2020-06-30 10:00)
DX: K80.01 Calculus of gallbladder with acute cholecystitis with obstruction (principal); Z20.828 Contact with and (suspected) exposure to other viral communicable diseases; Z88.2 Allergy status to sulfonamides; Z79.899 Other long term (current) drug therapy
CPT/HCPCS: 36415; 80048; 80076; 83690; 85025; 85610; 87635; 88304; 96361; 96374; 99222; 99231; 99285; J1100; J1885; J2250; J2270; J2405; J3010

== ENCOUNTER 2020-08-19 14:45 | Outpatient (REF) | payer OTHER, SELFPAY ==
[2020-08-19 16:41] LABS: UPreg QC Valid YES; Urine Pregnancy NEGATIVE (NEGATIVE)
[2020-08-20 09:48] LABS: BV Int Neg Control Negative (Negative); BV Int Pos Control Positive (Positive)
[2020-08-21 10:27] LABS: C. trachomatis RNA TMA NOT DETECTED (NOT DETECTED); N. gonorrhoeae RNA TMA NOT DETECTED (NOT DETECTED)
== END 2020-08-19 14:46 | disposition home or self-care (01) ==
LOC: HO.HMGCLDS 14:45
PROVIDERS: PCP Internal Medicine; Visit Provider Internal Medicine
DX: N76.0 Acute vaginitis (principal); N93.9 Abnormal uterine and vaginal bleeding, unspecified
CPT/HCPCS: 36415; 81025; 87480; 87491; 87510; 87591; 87660

== ENCOUNTER 2020-09-29 08:28 | Emergency (ER) | payer OTHER, SELFPAY ==
--- NOTE | ~2020-09-29 | US_ITS ---
EXAMINATION: US PELVIS COMPLETE, TRANSVAGINAL AND DOPPLER CLINICAL INFORMATION: Pelvic pain. COMPARISON: None TECHNIQUE: Routine transabdominal and transvaginal ultrasound of pelvis with Doppler exam performed. FINDINGS: The uterus is retroverted and retroflexed with an endometrial thickness of 1.2 cm. The uterus is homogeneous in echotexture. The endometrial thickness is 1.2 cm. No focal lesion seen. The right ovary measures 3.2 x 2.0 x 2.2 cm and volume 7.4 mL. It appears unremarkable. The left ovary measures 3.9 x 3.1 x 3.6 cm and volume 22.8 mL. There is an anechoic cyst with septation measuring 2.1 x 2.4 x 2.1 cm. There is a small amount of free fluid. On Doppler exam, there is normal arterial and venous flow seen to both ovaries. US/US transvaginal IMPRESSION: Normal uterus. 2.1 cm complex but dominant cyst left ovary. The right ovary is unremarkable. Small amount of free fluid in the cul-de-sac. Normal bilateral arterial and venous flow seen to ovaries.
--- NOTE | ~2020-09-29 | US_ITS ---
EXAMINATION: US PELVIS COMPLETE, TRANSVAGINAL AND DOPPLER CLINICAL INFORMATION: Pelvic pain. COMPARISON: None TECHNIQUE: Routine transabdominal and transvaginal ultrasound of pelvis with Doppler exam performed. FINDINGS: The uterus is retroverted and retroflexed with an endometrial thickness of 1.2 cm. The uterus is homogeneous in echotexture. The endometrial thickness is 1.2 cm. No focal lesion seen. The right ovary measures 3.2 x 2.0 x 2.2 cm and volume 7.4 mL. It appears unremarkable. The left ovary measures 3.9 x 3.1 x 3.6 cm and volume 22.8 mL. There is an anechoic cyst with septation measuring 2.1 x 2.4 x 2.1 cm. There is a small amount of free fluid. On Doppler exam, there is normal arterial and venous flow seen to both ovaries. US/US pelvic complete IMPRESSION: Normal uterus. 2.1 cm complex but dominant cyst left ovary. The right ovary is unremarkable. Small amount of free fluid in the cul-de-sac. Normal bilateral arterial and venous flow seen to ovaries.
--- NOTE | ~2020-09-29 | US_ITS ---
EXAMINATION: US PELVIS COMPLETE, TRANSVAGINAL AND DOPPLER CLINICAL INFORMATION: Pelvic pain. COMPARISON: None TECHNIQUE: Routine transabdominal and transvaginal ultrasound of pelvis with Doppler exam performed. FINDINGS: The uterus is retroverted and retroflexed with an endometrial thickness of 1.2 cm. The uterus is homogeneous in echotexture. The endometrial thickness is 1.2 cm. No focal lesion seen. The right ovary measures 3.2 x 2.0 x 2.2 cm and volume 7.4 mL. It appears unremarkable. The left ovary measures 3.9 x 3.1 x 3.6 cm and volume 22.8 mL. There is an anechoic cyst with septation measuring 2.1 x 2.4 x 2.1 cm. There is a small amount of free fluid. On Doppler exam, there is normal arterial and venous flow seen to both ovaries. US/US pelvic ovarian doppler IMPRESSION: Normal uterus. 2.1 cm complex but dominant cyst left ovary. The right ovary is unremarkable. Small amount of free fluid in the cul-de-sac. Normal bilateral arterial and venous flow seen to ovaries.
[2020-09-29 08:34] VITALS: BP 131/80; PULSE 91; RESP 18; TEMP 36.1; O2SAT 98; BMI 37.8
--- NOTE | 2020-09-29 08:58 | ED_ITS ---
HPI - Abdominal Pain General Chief Complaint: Abdominal Pain Stated Complaint: abdominal and back pain Time Seen by Provider: 09/29/20 08:35 Source: patient Mode of arrival: ambulatory Limitations: no limitations History of Present Illness HPI narrative: 20-year-old female presented with lower abdominal/pelvic pain, pain started 4 days ago after she finished her., described pain as intermittent crampy pain in the suprapubic area, pain is localized to the suprapubic area with no radiation, nothing makes the pain worse or better, pain is associated with mild vaginal discharge with foul smell, but no dysuria or urinary frequency. Describes the pain as mild. Patient is sexually active with 1 partner with low risk for STD. No other associated symptoms in particular nausea, or vomiting, or fever. Related Data Previous Rx's Medication Instructions Recorded ondansetron 4 mg PO Q8H PRN 5 Days #20 tab 06/17/20 Lidocaine Viscous 1 appl MUCOUS MEMBRANE BID PRN 06/27/20 #100 ml alum-mag hydroxide-simeth [Maalox 5 ml PO 5XD PRN #3000 ml 06/27/20 Advanced] oxycodone 5 mg PO Q6H PRN #14 tab 06/30/20 fluconazole 150 mg tablet 150 mg PO Q3D #2 tab 08/19/20 Allergies Allergy/AdvReac Type Severity Reaction Status Date / Time grapefruit [GRAPEFRUIT] Allergy Severe ANAPHYLAXIS Verified 08/19/20 14:12 Sulfa (Sulfonamide Allergy Severe ANAPHYLAXIS, Verified 08/19/20 14:12 Antibiotics) sweling of [SULFA (SULFONAMIDE the face ANTIBIOTICS)] and throat, throat & facial swelling nitrofurantoin Allergy Unknown rash on Verified 08/19/20 14:12 face, facial rash SEASONAL ALLERGIES Allergy Intermediate UNKNOWN Uncoded 06/17/20 09:21 [place]ados Allergy Unknown rash Uncoded 06/17/20 09:21 avocados Allergy Unknown rash Uncoded 06/17/20 09:21 cranberry juice Allergy Unknown rash Uncoded 06/17/20 09:21 grapefruit Allergy Unknown rash Uncoded 06/17/20 09:21 Review of Systems Review of Systems All other systems are reviewed and are negative Constitutional: Reports as per HPI and Reports no additional constitutional complaints Eyes: Reports as per HPI and Reports no additional eye complaints Reports system reviewed and no additional complaints, except as documented Cardiovascular: Reports as per HPI and Reports no additional cardiovascular complaints Respiratory: Reports as per HPI and Reports no additional respiratory complaints Gastrointestinal: Reports as per HPI and Reports no additional gastrointestinal complaints Genitourinary: Reports no additional female genitourinary complaints Musculoskeletal: Reports no additional musculoskeletal complaints Skin/Breast: Reports system reviewed and no additional complaints, except as docu Psychiatric: Reports no additional psychiatric complaints Endocrine: Reports no additional endocrine complaints Hematologic/Lymphatic: Reports no additional hematologic/lymphatic complaints Allergic/Immunologic: Reports no additional allergic/immunologic complaints Reports system reviewed and no additional complaints, except as documented and Reports Abnormal speech present Physical Exam Vital Signs: Vital Signs: Last Vital Signs Temp 98.1 F 09/29/20 11:56 Pulse 78 09/29/20 11:56 Resp 18 09/29/20 11:56 BP 110/60 09/29/20 11:56 Pulse Ox 98 09/29/20 11:56 Body Mass Index 37.8 Vital signs have been reviewed as appeared to be correct. Blood pressure normal. Heart rate normal. Respiration rate normal. Temperature normal. Oxygen saturation normal. Appearance: Alert. Oriented X3. No acute distress. Head: Normal external exam. Normocephalic. Atraumatic. No Gallardo signs noted. No raccoon eyes noted Eyes: PERRLA. EOMI. Conjunctiva and sclera normal. Eyelids normal. ENT: TM's Normal. Pharynx normal. Uvula midline. Moist mucous membranes. No trismus noted. No drooling noted. No muffled voice noted. Neck: Normal inspection. Neck supple. FROM. No adenopathy. Thyroid Normal. No meningeal signs. No neck mass noted. CVS: Normal heart rate and rhythm. Heart sound normal. No murmurs noted. Pulses normal throughout. Respiratory: No respiratory distress. Painless inspiration. Breath sounds normal. No wheezes/rales/rhonchi noted. Chest nontender. No accessory muscle usage noted or decreased air movement noted. Abdomen: Soft, mild suprapubic tenderness, no rebound, no guarding.. Bowel sounds normal in all 4 quadrants. No distention noted. No organomegaly noted. No visible injury noted. Pelvic exam: Normal inspection to the external genitalia, no discharge, no rash. No CMT, no palpable adnexal mass. Back: No CVA tenderness. Full range of motion noted. Skin: Skin warm and dry. Normal skin color. Normal skin turgor. No rashes/lesions/lacerations noted. Extremities: No lower extremity edema. Extremities exhibit normal range of motion. Extremities nontender. Neuro: Oriented X 3. No motor deficit. No sensory deficit. Reflexes normal. Course Course Course Narrative: Assessment and plan. 20-year-old female came in with pelvic/lower abdominal pain. Abdominal exam/pelvic exam showed mild suprapubic tenderness with no rebound or guarding, patient had an ultrasound showed left ovarian cyst (uncomplicated). Patient will be discharged to follow-up with OBGYN for a routine annual pelvic exam. MDM - Abdominal Pain Lab Data Attestation: I reviewed the patient's lab results. Result diagrams: 09/29/20 09:30 09/29/20 09:30 Labs: Lab Results 09/29/20 09/29/20 09/29/20 Range/Units 09:30 09:30 09:30 WBC 8.3 (4.8-10.8) X10*3/uL RBC 4.28 (4.20-5.50) X10*6/uL Hgb 11.6 L (12.0-16.0) g/dl Hct 37.3 (37-47) % MCV 87.1 (80-98) fL MCH 27.1 (27.0-33.0) pg MCHC 31.1 (31.0-35.0) g/dl RDW 13.8 (11.0-16.0) % Plt Count 336 (160-400) X10*3/uL MPV 9.9 (9.4-12.3) fL Immature Gran % (Auto) 0.2 (0.0-0.4) % Neut % (Auto) 69.1 (45-73) % Lymph % (Auto) 23.4 (20-40) % [place] % (Auto) 6.1 (2-11) % Eos % (Auto) 0.8 (0-4) % Baso % (Auto) 0.4 (0-2) % Lymph # (Auto) 1.9 (1.2-4.9) X10*3/uL [place] # (Auto) 0.5 (0.1-1.2) X10*3/uL Eos # (Auto) 0.1 (0.0-0.4) X10*3/uL Baso # (Auto) 0.0 (0.0-0.2) X10*3/uL Abs Immat Gran (auto) 0.02 (0.00-0.03) X10*3/uL Absolute Neuts (auto) 5.7 (2.0-8.3) X10*3/uL Absolute Nucleated RBC 0.000 (0.0-0.012) X10*3/uL Nucleated RBC % (auto) 0.0 (0.0-0.2) /100WBC Sodium 139 (135-145) mmol/L Potassium 4.3 (3.3-5.1) mmol/L Chloride 105 (96-108) mmol/L Carbon Dioxide 26 (22-29) mmol/L Anion Gap 12 (12-20) BUN 9 (9-16) mg/dL Creatinine 0.71 (0.5-1.4) mg/dL Estim Creat Clear Calc 128.5 Estimated GFR > 60 Random Glucose 87 (60-115) mg/dL Calcium 9.2 D (8.4-10.2) mg/dL Total Bilirubin 0.6 (0.0-1.0) mg/dL Direct Bilirubin 0.3 (0.0-0.5) mg/dL AST 20 D (5-31) U/L ALT 19 (0-31) U/L Alkaline Phosphatase 78 D (39-117) U/L Total Protein 7.0 (6.5-8.0) g/dL Albumin 4.3 (3.5-5.0) g/dL Lipase 22 (8-78) U/L Urine Color YELLOW Urine Appearance CLEAR Urine pH 6.5 (5.0-8.0) Ur Specific [place] 1.025 (1.005-1.025) Urine Protein NEG (NEG-TRACE) MG/DL Urine Glucose (UA) NEG (NEG) MG/DL Urine Ketones 15 (NEG) MG/DL Urine Blood NEG (NEG) Urine Nitrite NEG (NEG) Ur Leukocyte Esterase NEG (NEG) Urine Test (NEGATIVE) Chlam trachomat DNA PCR N.gonorrhoeae DNA (PCR) 09/29/20 09/29/20 Range/Units 09:30 09:30 WBC (4.8-10.8) X10*3/uL RBC (4.20-5.50) X10*6/uL Hgb (12.0-16.0) g/dl Hct (37-47) % MCV (80-98) fL MCH (27.0-33.0) pg MCHC (31.0-35.0) g/dl RDW (11.0-16.0) % Plt Count (160-400) X10*3/uL MPV (9.4-12.3) fL Immature Gran % (Auto) (0.0-0.4) % Neut % (Auto) (45-73) % Lymph % (Auto) (20-40) % [place] % (Auto) (2-11) % Eos % (Auto) (0-4) % Baso % (Auto) (0-2) % Lymph # (Auto) (1.2-4.9) X10*3/uL [place] # (Auto) (0.1-1.2) X10*3/uL Eos # (Auto) (0.0-0.4) X10*3/uL Baso # (Auto) (0.0-0.2) X10*3/uL Abs Immat Gran (auto) (0.00-0.03) X10*3/uL Absolute Neuts (auto) (2.0-8.3) X10*3/uL Absolute Nucleated RBC (0.0-0.012) X10*3/uL Nucleated RBC % (auto) (0.0-0.2) /100WBC Sodium (135-145) mmol/L Potassium (3.3-5.1) mmol/L Chloride (96-108) mmol/L Carbon Dioxide (22-29) mmol/L Anion Gap (12-20) BUN (9-16) mg/dL Creatinine (0.5-1.4) mg/dL Estim Creat Clear Calc Estimated GFR Random Glucose (60-115) mg/dL Calcium (8.4-10.2) mg/dL Total Bilirubin (0.0-1.0) mg/dL Direct Bilirubin (0.0-0.5) mg/dL AST (5-31) U/L ALT (0-31) U/L Alkaline Phosphatase (39-117) U/L Total Protein (6.5-8.0) g/dL Albumin (3.5-5.0) g/dL Lipase (8-78) U/L Urine Color Urine Appearance Urine pH (5.0-8.0) Ur Specific [place] (1.005-1.025) Urine Protein (NEG-TRACE) MG/DL Urine Glucose (UA) (NEG) MG/DL Urine Ketones (NEG) MG/DL Urine Blood (NEG) Urine Nitrite (NEG) Ur Leukocyte Esterase (NEG) Urine Test NEGATIVE (NEGATIVE) Chlam trachomat DNA PCR Cancelled N.gonorrhoeae DNA (PCR) Cancelled Imaging Data Pelvic ultrasound: Radiologist's impression: Normal uterus. 2.1 cm complex but dominant cyst left ovary. The right ovary is unremarkable. Small amount of free fluid in the cul-de-sac. Normal bilateral arterial and venous flow seen to ovaries. Discharge Plan Discharge Prescriptions: No Action ondansetron 4 mg tablet,disintegrating 4 mg PO Q8H PRN (Reason: nausea and vomiting) 5 Days Qty: 20 RF: 0 alum-mag hydroxide-simeth [Maalox Advanced] 200-200-20 mg/5 mL suspension 5 ml PO 5XD PRN (Reason: indigestion) Qty: 3000 RF: 0 Lidocaine Viscous 2 % solution 1 appl mucous membrane BID PRN (Reason: pain) Qty: 100 RF: 0 oxycodone 5 mg tablet 5 mg PO Q6H PRN (Reason: pain) Qty: 14 RF: 0 fluconazole 150 mg tablet 150 mg PO Q3D Qty: 2 RF: 0 PMFSH Past Medical History Medical History Abdominal pain Asthma Depression Dysuria Gallstones Gastritis Vaginal bleeding Vaginitis Social History Social History Household Members: Children Housing: Apartment Alcohol intake: current Alcohol intake frequency: holidays/special occasions only Smoking Status: Never smoker Use of substances other than those prescribed or required for medical reasons: Yes Substance Use Type: Marijuana Substance Use Frequency: Occasionally Advance Directives: No Advance Directives Information Provided: No service: No Current occupational status: employed
[2020-09-29 09:39] LABS: MANUAL DIFF FLAG NO
[2020-09-29 09:45] LABS: Basophils Percent Auto 0.4 % (0-2); Eosinophils Absolute Auto 0.1 X10*3/uL (0.0-0.4); Eosinophils Percent Auto 0.8 % (0-4); Glucose Urine UA NEG (NEG); Hematocrit 37.3 % (37-47); Hemoglobin 11.6 g/dl (12.0-16.0); Imm Gran Abs Auto 0.02 X10*3/uL (0.00-0.03); Imm Gran Pct Auto 0.2 % (0.0-0.4); Leukocyte Esterase Urine NEG (NEG); Lymphocytes Absolute Auto 1.9 X10*3/uL (1.2-4.9); Lymphocytes Percent Auto 23.4 % (20-40); Mean Corpuscular HGB Conc 31.1 g/dl (31.0-35.0); Mean Corpuscular Hemoglobin 27.1 pg (27.0-33.0); Mean Corpuscular Volume 87.1 fL (80-98); Mean Platelet Volume 9.9 fL (9.4-12.3); Monocytes Absolute Auto 0.5 X10*3/uL (0.1-1.2); Monocytes Percent Auto 6.1 % (2-11); Neutrophils Absolute Auto 5.7 X10*3/uL (2.0-8.3); Neutrophils Percent Auto 69.1 % (45-73); Nitrite Urine NEG (NEG); PH 6.5 (5.0-8.0); Platelet Count 336 X10*3/uL (160-400); Red Blood Count 4.28 X10*6/uL (4.20-5.50); Red Cell Distribution Width 13.8 % (11.0-16.0); Specific Gravity - Urine 1.025 (1.005-1.025); Urine Blood NEG (NEG); Urine Ketones 15 MG/DL (NEG); Urine Protein NEG (NEG-TRACE); White Blood Count 8.3 X10*3/uL (4.8-10.8)
[2020-09-29 09:56] LABS: Appearance Urine CLEAR; Color Urine YELLOW; UPreg QC Valid YES; Urine Pregnancy NEGATIVE (NEGATIVE)
[2020-09-29 10:04] LABS: Alanine Aminotransferase 19 U/L (0-31); Albumin Level 4.3 g/dL (3.5-5.0); Alkaline Phosphatase 78 U/L (39-117); Anion Gap 12 (12-20); Aspartate Amino Transferase 20 U/L (5-31); Bilirubin Direct 0.3 mg/dL (0.0-0.5); Bilirubin Total 0.6 mg/dL (0.0-1.0); Blood Urea Nitrogen 9 mg/dL (9-16); Calcium 9.2 mg/dL (8.4-10.2); Carbon Dioxide 26 mmol/L (22-29); Chloride 105 mmol/L (96-108); Creatinine Clr Calc Pharmacy 128.5; Estimated Glomerular Filt Rate > 60; Glucose Random 87 mg/dL (60-115); Lipase 22 U/L (8-78); Potassium 4.3 mmol/L (3.3-5.1); Sodium 139 mmol/L (135-145)
[2020-09-29 11:56] VITALS: BP 110/60; PULSE 78; RESP 18; TEMP 36.7; O2SAT 98
--- NOTE | 2020-09-29 12:00 | PC.NURSE ---
took report from alexander, upon entering room, patient sleeping-woke to verbal stimulus, pt c/o 5/10 pain, asking for crackers, vitals obtained/stable, pt awaiting results of testing, will continue to monitor.
[2020-09-30 09:21] LABS: BV Int Neg Control Negative (Negative); BV Int Pos Control Positive (Positive)
[2020-09-30 13:32] LABS: C. trachomatis RNA TMA NOT DETECTED (NOT DETECTED); N. gonorrhoeae RNA TMA NOT DETECTED (NOT DETECTED)
== END 2020-09-29 15:40 | disposition home or self-care (01) ==
PROVIDERS: Emergency Provider Emergency Medicine; PCP Internal Medicine
DX: N76.0 Acute vaginitis (principal); R10.2 Pelvic and perineal pain; N83.202 Unspecified ovarian cyst, left side; F12.90 Cannabis use, unspecified, uncomplicated
CPT/HCPCS: 36415; 76830; 76856; 80048; 80076; 81003; 81025; 83690; 85025; 87480; 87491; 87510; 87591; 87660; 93975; 99284

== ENCOUNTER 2020-09-29 16:44 | Outpatient (REF) | payer OTHER, SELFPAY | END 2020-09-29 16:45 | disposition home or self-care (01) | LOC: HO.LNP 16:44 | PROVIDERS: Visit Provider Hospitalist | DX: Z13.89 Encounter for screening for other disorder (principal) | CPT/HCPCS: 87480; 87510; 87660 ==

== ENCOUNTER 2020-12-02 15:45 | Outpatient (REF) | payer OTHER, SELFPAY | END 2020-12-02 15:46 | disposition home or self-care (01) | LOC: HO.LAB 15:45 | PROVIDERS: Visit Provider Nurse Practitioner Family | DX: R39.15 Urgency of urination (principal) | CPT/HCPCS: 87086; 87147 ==

== ENCOUNTER 2021-01-14 09:46 | Outpatient (REF) | payer OTHER, SELFPAY ==
[2021-01-14 13:11] LABS: CT PCR NOT DETECTED (Not Detect.); NG PCR NOT DETECTED (Not Detect.)
[2021-01-15 10:01] LABS: BV Int Neg Control Negative (Negative); BV Int Pos Control Positive (Positive)
== END 2021-01-14 09:47 | disposition home or self-care (01) ==
LOC: HO.LAB 09:46
PROVIDERS: Visit Provider Nurse Practitioner Family
DX: N39.0 Urinary tract infection, site not specified (principal); Z13.9 Encounter for screening, unspecified; Z32.02 Encounter for pregnancy test, result negative; N89.8 Other specified noninflammatory disorders of vagina; L02.91 Cutaneous abscess, unspecified
CPT/HCPCS: 87086; 87088; 87147; 87186; 87480; 87491; 87510; 87591; 87660

== ENCOUNTER 2021-01-28 11:17 | Outpatient (REF) | payer OTHER, SELFPAY ==
[2021-01-29 08:51] LABS: BV Int Neg Control Negative (Negative); BV Int Pos Control Positive (Positive)
== END 2021-01-28 11:18 | disposition home or self-care (01) ==
LOC: HO.LAB 11:17
PROVIDERS: Visit Provider Nurse Practitioner Family
DX: R39.15 Urgency of urination (principal); N89.8 Other specified noninflammatory disorders of vagina
CPT/HCPCS: 87086; 87480; 87510; 87660

== ENCOUNTER 2021-01-28 11:40 | Outpatient (REF) | payer OTHER, SELFPAY ==
[2021-01-28 14:26] LABS: HCG Quantitative < 2 mIU/mL
== END 2021-01-28 11:41 | disposition home or self-care (01) ==
LOC: HO.HMGCLDS 11:40
PROVIDERS: PCP Internal Medicine; Visit Provider Nurse Practitioner Family
DX: R39.15 Urgency of urination (principal); N89.8 Other specified noninflammatory disorders of vagina
CPT/HCPCS: 36415; 84702

== ENCOUNTER 2021-02-23 22:13 | Emergency (ER) | payer OTHER, SELFPAY | END 2021-02-23 23:28 | disposition left against medical advice (07) | PROVIDERS: Emergency Provider Emergency Medicine; PCP Internal Medicine | DX: M54.9 Dorsalgia, unspecified (principal) ==

== ENCOUNTER 2021-02-24 10:15 | Emergency (ER) | payer OTHER, SELFPAY ==
[2021-02-24 10:42] VITALS: BP 114/79; PULSE 86; RESP 20; TEMP 36.9; O2SAT 99; BMI 37.8
--- NOTE | 2021-02-24 12:17 | ED_ITS ---
HPI - General Adult General Chief complaint: Abdominal Pain Stated complaint: abd pain Time Seen by Provider: 02/24/21 11:46 Source: patient Mode of arrival: ambulatory Limitations: no limitations History of Present Illness HPI narrative: 21-year-old female who presents emergency department for evaluation of lower abdominal pain x5 days. Patient states that her last menstrual period was 02/02/2021. She states she developed a cramping sensation in her lower abdomen 5 days prior, the cramping has been constant but waxes and wanes in intensity from 5/10 to 10/10. She states that she has also had occasional chills but no fever. She has had occasional pounding headache associated with the pain. She has had nausea with no vomiting. She denied dysuria but she has had urinary frequency. She states that she has also had constipation with intermittent diarrhea. The patient does get urinary tract infections she states that her last 1 was 2 months prior. The patient is sexually active and last had intercourse 2 days prior, she states that was slightly uncomfortable. She denies vaginal discharge or vaginal bleeding. Patient states she has had similar pain in the past and was secondary to her gallbladder, she had a cholecystectomy and June of 2020. The patient has not been vaccinated for COVID-19. Related Data Previous Rx's Medication Instructions Recorded aluminum-mag hydroxide-simethicone 5 ml PO 5XD PRN #3000 ml 06/27/20 200 mg-200 mg-20 mg/5 mL oral susp (Maalox Advanced) cephalexin 500 mg capsule 500 mg PO QID 7 Days #28 cap 01/14/21 fluconazole 150 mg tablet 150 mg PO Q3D #2 tab 01/14/21 (Diflucan) metronidazole 500 mg tablet 500 mg PO BID 7 Days #14 tab 01/14/21 phenazopyridine 200 mg tablet 200 mg PO TID 0 Days #6 tab 01/14/21 (Pyridium) ciprofloxacin HCl 500 mg tablet 500 mg PO BID 7 Days #14 tab 01/28/21 ondansetron 4 mg disintegrating 4 mg PO Q6H PRN #20 tab 01/28/21 tablet Allergies Allergy/AdvReac Type Severity Reaction Status Date / Time grapefruit [GRAPEFRUIT] Allergy Severe ANAPHYLAXIS Verified 01/14/21 09:19 Sulfa (Sulfonamide Allergy Severe ANAPHYLAXIS, Verified 01/14/21 09:19 Antibiotics) sweling of [SULFA (SULFONAMIDE the face ANTIBIOTICS)] and throat, throat & facial swelling nitrofurantoin Allergy Unknown rash on Verified 01/14/21 09:19 face, facial rash SEASONAL ALLERGIES Allergy Intermediate UNKNOWN Uncoded 09/29/20 15:05 Avacados Allergy Unknown rash Uncoded 09/29/20 15:05 avocados Allergy Unknown rash Uncoded 09/29/20 15:05 cranberry juice Allergy Unknown rash Uncoded 09/29/20 15:05 grapefruit Allergy Unknown rash Uncoded 09/29/20 15:05 Review of Systems Review of Systems: Yes all other systems are reviewed and are negative [facility] Past Medical History [facility] Narrative: Past medical history: Asthma, depression, urinary tract infections, vaginitis. Past surgical history: 2019, cholecystectomy 07/13/2020, right elbow surgery. Social history: The patient does smoke cig arettes. She occasionally drinks alcohol. She denies drug use. Medical History Abdominal pain Asthma Depression Dysuria Gallstones Gastritis Vaginal bleeding Vaginitis Social History Social History Household Members: Children Housing: Apartment Alcohol intake: current Alcohol intake frequency: holidays/special occasions only Substance Use Type: Marijuana Advance Directives: No Advance Directives Information Provided: No service: No Current occupational status: employed Physical Exam Vital Signs: Vital Signs: Last Vital Signs Temp 98.6 F 02/24/21 12:25 Pulse 66 02/24/21 12:25 Resp 15 02/24/21 12:25 BP 110/68 02/24/21 12:25 Pulse Ox 97 02/24/21 12:25 Body Mass Index 37.8 Const: General: cooperative and no acute distress Orientation/consciousness: oriented to person and oriented to place Limitations: no limitations HENMT: Head: Yes normal to inspection, Yes normocephalic and Yes atraumatic Ears: external ears normal General nose exam: Normal external nose present Face and sinus: Yes normal facial exam Mouth: Normal oral and palatal mucosa present Throat: Yes posterior oropharynx normal Eyes: General: appearance normal, both eyes and all related structures Pupils: Equal, round and reactive pupils present Neck: Neck: Yes normal visual inspection, Yes no lymphadenopathy, Yes trachea midline and Yes supple Chest: Chest palpation & inspection: normal inspection of the chest and normal palpation of entire chest wall Resp: Effort & Inspection: normal respiratory effort and able to speak in complete sentences Auscultation: clear to auscultation bilaterally Cardio: Rate: regular rate Rhythm: regular rhythm Heart sounds: S1 normal heart sound present, S2 normal heart sound present and no murmurs GI: Inspection: Yes normal to inspection Palpation (GI): Soft to palpation, Tenderness to palpation present (GI) (Mild midepigastric, mild RLQ, moderate suprapubic tenderness) and no guarding Auscultation: normal bowel sounds : General: Yes no CVA tenderness Back/Spine/Pelvis: Back: no CVA tenderness Skin: General skin exam: no rashes or lesions noted Neuro: General: oriented to person and oriented to place Cranial nerves: Yes CN's II-XII intact bilaterally and Yes Equal, round and reactive pupils present Cognition (Neuro): normal cognition Motor exam (neuro): 5/5 motor strength present throughout Extrem: General: Yes normal to inspection Psych: Appearance: grossly normal Speech and movement: Normal speech and movement present Affect: normal affect Attitude: cooperative Thought process: Normal thought process present Thought content: Normal thought content present Course Course Course Narrative: 21-year-old female who presents emergency department for evaluation of abdominal pain x5 days, the pain is a cramping like sensation which has been constant, she has had no fever but chills, she has had associated headache, nausea and urinary frequency. Vital signs were normal. Physical e xamination did reveal mild epigastric and right lower quadrant tenderness and moderate suprapubic tenderness. Laboratory evaluation was obtained. Patient's pain was treated with Tylenol 975 mg orally. 1419: The patient's laboratory evaluation was unremarkable. Urinalysis was normal. Urine test was faintly positive therefore quantitative beta- hCG was added. The quantitative beta-hCG is 52. I did discuss this finding with the patient. At this time, I do not have a clear cause for the patient's pain. The patient was advised to take Tylenol for her pain. She will need to follow- up with a recording studio intern in 1 week for re-evaluation of her abdominal pain and for repeat quantitative beta HCG. The patient was given verbal and printed instructions prior to discharge. The patient was advised to follow-up with her PCP in 2 days and to return to the emergency department if her symptoms get worse or if she develops any new symptoms that are concerning to her. Medical Decision Making Lab Data Result diagrams: 02/24/21 12:34 02/24/21 12:34 Labs: Lab Results 02/24/21 02/24/21 02/24/21 Range/Units 12:33 12:34 12:34 WBC 10.1 (4.8-10.8) X10*3/uL RBC 4.24 (4.20-5.50) X10*6/uL Hgb 11.8 L (12.0-16.0) g/dl Hct 37.0 (37-47) % MCV 87.3 (80-98) fL MCH 27.8 (27.0-33.0) pg MCHC 31.9 (31.0-35.0) g/dl RDW 14.0 (11.0-16.0) % Plt Count 310 (160-400) X10*3/uL MPV 9.7 (9.4-12.3) fL Immature Gran % (Auto) 0.3 (0.0-0.4) % Neut % (Auto) 67.3 (45-73) % Lymph % (Auto) 24.9 (20-40) % Boyd % (Auto) 5.6 (2-11) % Eos % (Auto) 1.6 (0-4) % Baso % (Auto) 0.3 (0-2) % Lymph # (Auto) 2.5 (1.2-4.9) X10*3/uL Boyd # (Auto) 0.6 (0.1-1.2) X10*3/uL Eos # (Auto) 0.2 (0.0-0.4) X10*3/uL Baso # (Auto) 0.0 (0.0-0.2) X10*3/uL Abs Immat Gran (auto) 0.03 (0.00-0.03) X10*3/uL Absolute Neuts (auto) 6.8 (2.0-8.3) X10*3/uL Absolute Nucleated RBC 0.000 (0.0-0.012) X10*3/uL Nucleated RBC % (auto) 0.0 (0.0-0.2) /100WBC Sodium 139 (135-145) mmol/L Potassium 4.5 (3.3-5.1) mmol/L Chloride 107 (96-108) mmol/L Carbon Dioxide 24 (22-29) mmol/L Anion Gap 13 (12-20) BUN 5 L (9-16) mg/dL Creatinine 0.67 (0.5-1.4) mg/dL Estim Creat Clear Calc 135.1 Estimated GFR > 60 Random Glucose 88 (60-115) mg/dL Calcium 9.7 (8.4-10.2) mg/dL Total Bilirubin 0.3 (0.0-1.0) mg/dL AST 16 (5-31) U/L ALT 17 (0-31) U/L Alkaline Phosphatase 72 (39-117) U/L Total Protein 6.5 (6.5-8.0) g/dL Albumin 4.1 (3.5-5.0) g/dL Lipase 36 (8-78) U/L Beta HCG, Quant 52 mIU/mL Urine Color Urine Appearance Urine pH (5.0-8.0) Ur Specific [place] (1.005-1.025) Urine Protein (NEG-TRACE) MG/DL Urine Glucose (UA) (NEG) MG/DL Urine Ketones (NEG) MG/DL Urine Blood (NEG) Urine Nitrite (NEG) Ur Leukocyte Esterase (NEG) Urine Test WEAKLY POSITIVE H (NEGATIVE) 02/24/21 Range/Units 12:34 WBC (4.8-10.8) X10*3/uL RBC (4.20-5.50) X10*6/uL Hgb (12.0-16.0) g/dl Hct (37-47) % MCV (80-98) fL MCH (27.0-33.0) pg MCHC (31.0-35.0) g/dl RDW (11.0-16.0) % Plt Count (160-400) X10*3/uL MPV (9.4-12.3) fL Immature Gran % (Auto) (0.0-0.4) % Neut % (Auto) (45-73) % Lymph % (Auto) (20-40) % Boyd % (Auto) (2-11) % Eos % (Auto) (0-4) % Baso % (Auto) (0-2) % Lymph # (Auto) (1.2-4.9) X10*3/uL Boyd # (Auto) (0.1-1.2) X10*3/uL Eos # (Auto) (0.0-0.4) X10*3/uL Baso # (Auto) (0.0-0.2) X10*3/uL Abs Immat Gran (auto) (0.00-0.03) X10*3/uL Absolute Neuts (auto) (2.0-8.3) X10*3/uL Absolute Nucleated RBC (0.0-0.012) X10*3/uL Nucleated RBC % (auto) (0.0-0.2) /100WBC Sodium (135-145) mmol/L Potassium (3.3-5.1) mmol/L Chloride (96-108) mmol/L Carbon Dioxide (22-29) mmol/L Anion Gap (12-20) BUN (9-16) mg/dL Creatinine (0.5-1.4) mg/dL Estim Creat Clear Calc Estimated GFR Random Glucose (60-115) mg/dL Calcium (8.4-10.2) mg/dL Total Bilirubin (0.0-1.0) mg/dL AST (5-31) U/L ALT (0-31) U/L Alkaline Phosphatase (39-117) U/L Total Protein (6.5-8.0) g/dL Albumin (3.5-5.0) g/dL Lipase (8-78) U/L Beta HCG, Quant mIU/mL Urine Color STRAW Urine Appearance CLEAR Urine pH 6.5 (5.0-8.0) Ur Specific [place] 1.015 (1.005-1.025) Urine Protein NEG (NEG-TRACE) MG/DL Urine Glucose (UA) NEG (NEG) MG/DL Urine Ketones NEG (NEG) MG/DL Urine Blood NEG (NEG) Urine Nitrite NEG (NEG) Ur Leukocyte Esterase NEG (NEG) Urine Test (NEGATIVE) Discharge Plan Discharge Clinical Impression: Abdominal pain Qualifiers: Abdominal location: lower abdomen, unspecified Qualified Code(s): R10.30 - Lower abdominal pain, unspecified Patient Disposition: Home, Self-Care Instructions: Abdominal Pain (ED) Additional Instructions: Your laboratory evaluation was unremarkable. Your urinalysis was normal, there is no evidence for urinary tract infection based on this test. Your urine test was faintly positive. Your blood test (quantitative beta HCG) was positive at 52. At this time, I am not certain what this means. It could mean that you are early on in your ( less than 3 weeks) or this could be a false-positive test. Sometimes, women do have a small amount of beta-hCG in there blood and does not mean that they are . You will need to follow-up with your recording studio intern 1 week for re-evaluation of yo ur abdominal pain and to get a repeat quantitative beta-hCG. Take Tylenol (acetaminophen) 500 mg pills, 2 pills every 4 to 6 hours as needed for pain. Follow-up with your OBGYN at [facility] in 1 week Please return to the emergency department if your symptoms get worse or if you develop any symptoms that are concerning to you. Prescriptions: No Action alum-mag hydroxide-simeth [Maalox Advanced] 200-200-20 mg/5 mL suspension 5 ml PO 5XD PRN (Reason: indigestion) Qty: 3000 RF: 0 ondansetron 4 mg tablet,disintegrating 4 mg PO Q6H PRN (Reason: nausea and vomiting) Qty: 20 RF: 0 ciprofloxacin HCl 500 mg tablet 500 mg PO BID 7 Days Qty: 14 RF: 0 phenazopyridine [Pyridium] 200 mg tablet 200 mg PO TID 0 Days Qty: 6 RF: 0 fluconazole [Diflucan] 150 mg tablet 150 mg PO Q3D Qty: 2 RF: 0 metronidazole 500 mg tablet 500 mg PO BID 7 Days Qty: 14 RF: 0 cephalexin 500 mg capsule 500 mg PO QID 7 Days Qty: 28 RF: 0
[2021-02-24 12:25] VITALS: BP 110/68; PULSE 66; RESP 15; TEMP 37; O2SAT 97
[2021-02-24] MEDS: Acetaminophen 325 MG TABLET 975 MG PO (12:28)
[2021-02-24 12:40] LABS: MANUAL DIFF FLAG NO
[2021-02-24 12:42] LABS: Basophils Percent Auto 0.3 % (0-2); Eosinophils Absolute Auto 0.2 X10*3/uL (0.0-0.4); Eosinophils Percent Auto 1.6 % (0-4); Hemoglobin 11.8 g/dl (12.0-16.0); Imm Gran Abs Auto 0.03 X10*3/uL (0.00-0.03); Imm Gran Pct Auto 0.3 % (0.0-0.4); Lymphocytes Absolute Auto 2.5 X10*3/uL (1.2-4.9); Lymphocytes Percent Auto 24.9 % (20-40); Mean Corpuscular HGB Conc 31.9 g/dl (31.0-35.0); Mean Corpuscular Hemoglobin 27.8 pg (27.0-33.0); Mean Corpuscular Volume 87.3 fL (80-98); Mean Platelet Volume 9.7 fL (9.4-12.3); Monocytes Absolute Auto 0.6 X10*3/uL (0.1-1.2); Monocytes Percent Auto 5.6 % (2-11); Neutrophils Absolute Auto 6.8 X10*3/uL (2.0-8.3); Neutrophils Percent Auto 67.3 % (45-73); Platelet Count 310 X10*3/uL (160-400); Red Blood Count 4.24 X10*6/uL (4.20-5.50); White Blood Count 10.1 X10*3/uL (4.8-10.8)
[2021-02-24 12:46] LABS: Glucose Urine UA NEG (NEG); Leukocyte Esterase Urine NEG (NEG); Nitrite Urine NEG (NEG); PH 6.5 (5.0-8.0); Specific Gravity - Urine 1.015 (1.005-1.025); Urine Blood NEG (NEG); Urine Ketones NEG (NEG); Urine Protein NEG (NEG-TRACE)
[2021-02-24 12:49] LABS: Appearance Urine CLEAR; Color Urine STRAW
[2021-02-24 12:55] LABS: UPreg QC Valid YES; Urine Pregnancy WEAKLY POSITIVE (NEGATIVE)
[2021-02-24 13:09] LABS: Alanine Aminotransferase 17 U/L (0-31); Albumin Level 4.1 g/dL (3.5-5.0); Alkaline Phosphatase 72 U/L (39-117); Anion Gap 13 (12-20); Aspartate Amino Transferase 16 U/L (5-31); Bilirubin Total 0.3 mg/dL (0.0-1.0); Blood Urea Nitrogen 5 mg/dL (9-16); Calcium 9.7 mg/dL (8.4-10.2); Carbon Dioxide 24 mmol/L (22-29); Chloride 107 mmol/L (96-108); Creatinine Clr Calc Pharmacy 135.1; Estimated Glomerular Filt Rate > 60; Glucose Random 88 mg/dL (60-115); Lipase 36 U/L (8-78); Potassium 4.5 mmol/L (3.3-5.1); Sodium 139 mmol/L (135-145); Total Protein 6.5 g/dL (6.5-8.0)
[2021-02-24 13:53] LABS: HCG Quantitative 52 mIU/mL
== END 2021-02-24 14:31 | disposition home or self-care (01) ==
PROVIDERS: Emergency Provider Emergency Medicine Emergency Medical Services; PCP Internal Medicine
DX: R10.30 Lower abdominal pain, unspecified (principal); K59.00 Constipation, unspecified; R51.9 Headache, unspecified; F12.90 Cannabis use, unspecified, uncomplicated; Z79.899 Other long term (current) drug therapy
CPT/HCPCS: 36415; 80053; 81003; 81025; 83690; 84702; 85025; 99284

== ENCOUNTER 2021-04-18 16:08 | Outpatient (REF) | payer OTHER, SELFPAY | END 2021-04-18 16:09 | disposition home or self-care (01) | LOC: HO.LNP 16:08 | PROVIDERS: Visit Provider Physician Assistant | DX: O26.891 Other specified pregnancy related conditions, first trimester (principal); R30.0 Dysuria | CPT/HCPCS: 87086 ==

== ENCOUNTER 2023-07-27 11:08 | Outpatient (AMB) | payer OTHER, SELFPAY ==
--- NOTE | 2023-07-27 11:59 | MHC.OFFWIV ---
Intake Vital Signs 07/27/23 12:04 Height 5 ft 7 in Weight 232 lb BMI 36.3 BP 124/60 Blood Pressure Location Lt brachial Position Sitting Pulse 90 Pulse Source Pulse Oximeter Temp 97.3 F Temp Source Temporal Artery Scan Pulse Oximetry (%) 96 Oxygen Delivery Method Room Air Intake Visit Reasons: EP, low back pain, urgency with urination Intake Note: pt is here today for low back pain urgency with urination started 2 weeks ago Patient Tobacco Use Status: Never used Tobacco Is last menstrual period known: Yes Patient : No Allergies grapefruit [GRAPEFRUIT] Allergy (Severe, Verified 07/27/23 12:12) ANAPHYLAXIS Sulfa (Sulfonamide Antibiotics) [SULFA (SULFONAMIDE ANTIBIOTICS)] Allergy (Severe, Verified 07/27/23 12:12) ANAPHYLAXIS, sweling of the face and throat, throat & facial swelling nitrofurantoin Allergy (Unknown, Verified 07/27/23 12:12) rash on face, facial rash SEASONAL ALLERGIES Allergy (Intermediate, Uncoded 09/29/20 15:05) UNKNOWN Avacados Allergy (Unknown, Uncoded 09/29/20 15:05) rash avocados Allergy (Unknown, Uncoded 09/29/20 15:05) rash cranberry juice Allergy (Unknown, Uncoded 09/29/20 15:05) rash grapefruit Allergy (Unknown, Uncoded 09/29/20 15:05) rash Do you need a note to return to daycare/school/sports/work: No HPI EP, low back pain, urgency with urination HPI Details 23 year old female patient presents today with possible UTI. Reports 2 weeks of urgency and burning with urination, and lower back pain. Reports that since she got Mirena IUD placed about 7 months ago, she does not get periods, and this has been causing her to get frequent UTIs and yeast infections. She is considering have it removed. She also reports a sensation of acid reflux and some intermittent burning in her esophagus. [facility] Medical History Vaginal bleeding Vaginitis Gastritis Asthma Gallstones Depression Abdominal pain Dysuria Social History Household Members: Children Housing: Apartment Alcohol intake: current Alcohol intake frequency: holidays/special occasions only Patient Tobacco Use Status: Never used Tobacco Substance Use Type: Marijuana Patient : No service: No Current occupational status: employed Review of Systems Const All systems reviewed & are unremarkable except as noted in HPI and below Physical Exam Vital Signs: Last Vital Signs Temp 97.3 F 07/27/23 12:04 Pulse 90 07/27/23 12:04 BP 124/60 07/27/23 12:04 Pulse Ox 96 07/27/23 12:04 Oxygen Delivery Method Room Air 07/27/23 12:04 BMI result Body Mass Index 36.3 Const General: cooperative and no acute distress HEENT Head: Yes normal to inspection Neck Neck: Yes no lymphadenopathy Resp Effort & Inspection: normal respiratory effort and able to speak in complete sentences Auscultation: clear to auscultation bilaterally Cardio Palpation: normal PMI Rate: regular rate Rhythm: regular rhythm GI Palpation (GI): Soft to palpation and No hepatosplenomegaly present Auscultation: normal bowel sounds General: Yes CVA tenderness (mild, b/l) Back/Spine/Pelvis Back: CVA tenderness (mild, b/l) Skin General skin exam: no rashes or lesions noted Extrem General: Yes capillary refill normal and Yes no clubbing, cyanosis or edema Psych Appearance: grossly normal Mental Status: mental status grossly normal Speech and movement: Normal speech and movement present Results AMB Urinalysis, Automated UA Leukoctes 0 Payal/uL Last Edit by Pramod Ocasio CMA on 07/27/23 12:24 UA Nitrite Negative Last Edit by Pramod Ocasio CMA on 07/27/23 12:24 UA Urobilinogen 0.2 mg/dL Last Edit by Pramod Ocasio CMA on 07/27/23 12:24 UA Protein 15 mg/dL Last Edit by Pramod Ocasio CMA on 07/27/23 12:24 UA pH 6.0 Last Edit by Pramod Ocasio CMA on 07/27/23 12:24 UA Blood 0 Jeff/uL Last Edit by Pramod Ocasio CMA on 07/27/23 12:24 UA Specific [place] 1.025 Last Edit by Pramod Ocasio CMA on 07/27/23 12:24 UA Ketone Positive Last Edit by Pramod Ocasio CMA on 07/27/23 12:24 UA Bilirubin 1 mg/dL Last Edit by Pramod Ocasio CMA on 07/27/23 12:24 UA Glucose 0 mg/dL Last Edit by Pramod Ocasio CMA on 07/27/23 12:24 Assessment & Plan Assessment & Plan (1) UTI (urinary tract infection): Code(s): N39.0 - Urinary tract infection, site not specified Qualifiers: Urinary tract infection type: acute cystitis Hematuria presence: without hematuria Qualified Code(s): N30.00 - Acute cystitis without hematuria Plan: Sulfa and nitrofurantoin allergy. Will start on Cephalexin and also pyridium for the UTI. Reviewed indications, use, possible s/e of medications. She reportedly gets yeast infections following abx use, so I will send fluconazole for use following UTI treatment if she does develop one. If she does not improve with treatment or if she develops fever, chills, intensifying flank pain, she should return to the clinic or the ED for evaluation. (2) Acid reflux: Code(s): K21.9 - Gastro-esophageal reflux disease without esophagitis Qualifiers: Esophagitis presence: esophagitis presence not specified Qualified Code(s): K21.9 - Gastro-esophageal reflux disease without esophagitis Plan: having symptoms of GERD. Will start her on low dose prilosec, and advised she f/u with PCP. She verbalizes understanding and agrees to plan. Orders: Orders AMB Urinalysis Automated Today Z13.9 - Encounter for screening, unspecified Medications: New cephalexin 500 mg PO TID 15 tabs 0RF 5 days N39.0 - Urinary tract infection, site not specified fluconazole may repeat second dose 72 hrs after first dose if symptoms persist 150 mg PO Q3D 2 tabs 0RF 2 doses omeprazole 10 mg PO DAILY 30 caps 1RF K21.9 - Gastro-esophageal reflux disease without esophagitis phenazopyridine 200 mg PO TID PRN 6 tabs 0RF pain 6 doses Coding Level of Care Code Est Pt Level 4 (79107) Diagnoses Acute cystitis without hematuria N30.00 Urinary tract infection type: acute cystitis Hematuria presence: without hematuria Gastroesophageal reflux disease, unspecified whether esophagitis present K21.9 Esophagitis presence: esophagitis presence not specified
[2023-07-27 12:04] VITALS: BP 124/60; PULSE 90; TEMP 36.3; O2SAT 96; BMI 36.3
== END 2023-07-27 12:50 | disposition home or self-care (01) ==
PROVIDERS: PCP Internal Medicine; Visit Provider Nurse Practitioner Family
DX: N30.00 Acute cystitis without hematuria (principal); K21.9 Gastro-esophageal reflux disease without esophagitis; R30.9 Painful micturition, unspecified
CPT/HCPCS: 81003; 99214

== ENCOUNTER 2025-02-25 09:47 | Outpatient (REF) | payer OTHER, SELFPAY | END 2025-02-25 09:48 | disposition home or self-care (01) | LOC: HO.LNP 09:47 | PROVIDERS: PCP Internal Medicine; Visit Provider Physician Assistant Medical | DX: L98.9 Disorder of the skin and subcutaneous tissue, unspecified (principal); M79.662 Pain in left lower leg | CPT/HCPCS: 87255; 99212 ==

== ENCOUNTER 2025-02-25 09:47 | Outpatient (AMB) | payer OTHER, SELFPAY ==
[2025-02-25 10:14] VITALS: BP 102/84; PULSE 90; TEMP 36.7; O2SAT 98; BMI 41.6
--- NOTE | 2025-02-25 10:14 | AM.OFFWIN_ITS ---
Intake Vital Signs 02/25/25 10:14 Height 5 ft 1 in Weight 220 lb BMI 41.6 BP 102/84 Blood Pressure Location Lt brachial Position Sitting Pulse 90 Pulse Source Pulse Oximeter Temp 98.1 F Temp Source Oral Pulse Oximetry (%) 98 Oxygen Delivery Method Room Air Intake Visit Reasons: EP-lt leg pain Intake Note: presents with painful growth on LT inner thigh for a couple days Patient Tobacco Use Status: Never used Tobacco Allergies grapefruit (GRAPEFRUIT) Allergy (Severe, Verified 02/25/25 10:16) ANAPHYLAXIS Sulfa (Sulfonamide Antibiotics) (SULFA (SULFONAMIDE ANTIBIOTICS)) Allergy (Severe, Verified 02/25/25 10:16) ANAPHYLAXIS, sweling of the face and throat, throat & facial swelling nitrofurantoin Allergy (Unknown, Verified 02/25/25 10:16) rash on face, facial rash SEASONAL ALLERGIES Allergy (Intermediate, Uncoded 09/29/20 15:05) UNKNOWN Avacados Allergy (Unknown, Uncoded 09/29/20 15:05) rash avocados Allergy (Unknown, Uncoded 09/29/20 15:05) rash cranberry juice Allergy (Unknown, Uncoded 09/29/20 15:05) rash grapefruit Allergy (Unknown, Uncoded 09/29/20 15:05) rash Do you need a note to return to daycare/school/sports/work: No HPI HPI Comments History of Present Illness Details History - The patient is a 25-year-old female pr esenting with a painful lesion in the groin area. - The lesion developed after shaving, wh ich the patient typically avoids due to a history of ingrown hairs. - The lesion is described as a small, ca using significant discomfort and difficulty walking. - There is no history of herpes simplex virus infection or concerns about sexually transmitted infections from partners. - She denies fever, chills, bleeding, or rashes or lesions. Physical Exam General: Cooperative, healthy appearing, comfortable, no acute distress and well developed Orientation: Patient oriented x3 Limitations: Difficulty walking due to pain Respiratory: Normal respiratory effort and able to speak in complete sentences. Clear to auscultation bilaterally. No w/r/r noted. Cardiovascular: RRR, no m/r/g noted. Normal S1 and S2 Skin: Small single lesion noted on the left inner thigh in the buttock region. Open and draining serous fluid, no induration noted. No redness or warmth noted. No streaking noted. Patient was informed and verbally consented to the use of an ambient scribe for clinic note documentation during this visit [facility] Medical History Vaginal bleeding Vaginitis Gastritis Asthma Gallstones Depression Abdominal pain Dysuria Social History Household Members: Children Housing: Apartment Alcohol intake: current Alcohol intake frequency: holidays/special occasions only Patient Tobacco Use Status: Never used Tobacco Substance Use Type: Marijuana service: No Current occupational status: employed Review of Systems Const All systems reviewed & are unremarkable except as noted in HPI and below Physical Exam Vital Signs: Last Vital Signs Temp 98.1 F 02/25/25 10:14 Pulse 90 02/25/25 10:14 BP 102/84 02/25/25 10:14 Pulse Ox 98 02/25/25 10:14 Oxygen Delivery Method Room Air 02/25/25 10:14 BMI result Body Mass Index 41.6 Assessment & Plan Assessment & Plan (1) Skin lesion: Code(s): L98.9 - Disorder of the skin and subcutaneous tissue, unspecified Plan Most likely herpes vs folliculitis vs cyst plan - herpes culture done - bactroban ointment to the area TID - will call with the results - keep area clean and dry Orders: Orders Herpes Virus Culture Today L98.9 - Disorder of the skin and subcutaneous tissue, unspecified Medications: New mupirocin 2% 1 appl topical TID 22 grams 0RF Coding Level of Care Code Est Pt Level 3 (83303) Diagnoses Skin lesion L98.9
--- OUTSIDE RECORDS SUMMARY | 2025-02-25 10:23 | XMS_ITS | Encounter Summary ---
Author Organization [facility] Address [address] [place] [address] Phone Care Team Providers Care Car Parker Name Role Phone Heaven Kirby DO Primary Care Provider Unavaila ble Encounter Details Date Type Department Care Team (Late st Contact Info) Description 11/13/2010 Conversion Encounter [facility] [place] [address] Social History Tobacco Use Types Packs/Day Years Used Date Smoking Tobacco: Never Assessed Comments Unknown Sex and Gender Information Value Date Recorded Sex Assigned at Not on file Legal Sex Female 6:20 PM EDT Gender Identity Not on file Sexual Orientation Not on file documented as of this encounter Plan of Treatment Not on file documented as of this encounter Visit Diagnoses Not on filedocumented in this encounter Care Teams Car Parker Relationship Specialty Start Date End Date Heaven Kirby DO PCP - General 11/30/17 documented as of this encounter
== END 2025-02-25 11:19 | disposition home or self-care (01) ==
PROVIDERS: PCP Internal Medicine; Visit Provider Physician Assistant Medical
DX: L98.9 Disorder of the skin and subcutaneous tissue, unspecified (principal)